=== PATIENT | female | born 1930 | race Caucasian/White ===

== ENCOUNTER 2017-08-16 13:49 | Emergency (ER) | payer MEDICARE ==
[~2017-08-16] VITALS: Ht 160 cm; Wt 66.2 kg
[~2017-08-16 13:49] MED LIST: AMLO5TAB2 PO; ASCO-78 PO; ATOR10TA PO; CALC667C6 PO; CLOP75TA57 PO; ZOLP5TAB PO
--- NOTE | 2017-08-16 14:37 | EKG ---
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
[2017-08-16 14:40] LABS: BASO # 0.1 x10^3/uL (0.0-0.2); BASO % 1 % (0-3); EOS % 0 % (0-3); HEMATOCRIT 36.5 % (36.0-47.0); HEMOGLOBIN 12.9 g/dL (12.0-15.5); LYMPH # 1.3 x10^3/uL (1.0-4.8); LYMPH % 11 % (24-48); MEAN CORPUSCULAR HEMOGLOBIN 32 pg (25-35); MEAN CORPUSCULAR HGB CONC 35 g/dL (31-37); MEAN CORPUSCULAR VOLUME 90 fL (79-100); MONO # 1.7 x10^3/uL (0.0-1.1); MONO % 14 % (0-9); NEUT # 8.9 x10^3uL (1.8-7.7); NEUT % 75 % (31-73); PLATELET COUNT 165 x10^3/uL (140-400); RED BLOOD COUNT 4.06 x10^6/uL (3.50-5.40); RED CELL DISTRIBUTION WIDTH 13.2 % (11.5-14.5)
[2017-08-16 14:55] LABS: ALBUMIN 3.7 g/dL (3.4-5.0); CALCIUM 9.2 mg/dL (8.5-10.1); CREATININE 1.2 mg/dL (0.6-1.0); DIRECT BILIRUBIN 0.4 mg/dL (0.0-0.2); GFR 42.5; POTASSIUM 3.9 mmol/L (3.5-5.1); TOTAL BILIRUBIN 1.2 mg/dL (0.2-1.0); TOTAL PROTEIN 7.4 g/dL (6.4-8.2)
[2017-08-16] MEDS ORDERED: ONDA4TAB7 PO (15:10)
--- NOTE | 2017-08-16 15:10 | PHYS DOC ---
Past History Past Medical History: Diabetes, High Cholesterol, Other Past Surgical History: Colectomy, Hysterectomy, Oophorectomy, Pacemaker Alcohol Use: None Drug Use: None Adult General Chief Complaint Chief Complaint: nausea HPI HPI 86-year-old female presenting to the emergency department today with nausea. She reports her nausea started about 2 days ago. She denies any vomiting or pain. She denies chest pain or abdominal pain. She complains of chills but denies having fevers at home. She denies numbness weakness or tingling vision changes difficulty talking or walking. Review of systems is negative for fevers chills neck stiffness confusion cyanosis lethargy chest pain shortness of breath abdominal pain vomiting diarrhea constipation. All other review of systems is negative unless otherwise noted in history of present illness. ED course: 86-year-old female presenting to the emergency department today with nausea. Triage vital signs afebrile with a normal heart rate and blood pressure. Saturating well on room air. Patient is comfortable with on examination. Nontender abdomen clear lungs to auscultation. Otherwise normal neurologic exam. There are no rashes present on the patient's skin. Based on the patient's symptoms we mónica some blood work and reviewed it which showed evidence of a urinary tract infection. Mild leukocytosis present. This explains most of the patient's symptoms and is consistent with patient's clinical presentation. The patient was initiated on antibiotic therapy. The patient was then discharged home in stable condition to follow up with their primary care physician over the next 2-3 days. They were to return if their symptoms worsened or if they were concerned for any reason. [id number] discharge instructions and return precautions were given. Patient's questions were answered to their satisfaction. Patient is comfortable plan. Review of Systems Review of Systems SEE ABOVE. Allergies Allergies Allergies Coded Allergies Type Severity Reaction Last Updated Verified aspirin Allergy Intermediate 10/22/14 Yes I S O L A T I O N *CONTACT* Allergy Unknown 05/25/15 No Physical Exam Physical Exam SEE ABOVE Constitutional: Well developed, well nourished, no acute distress, non-toxic appearance. [] HENT: Normocephalic, atraumatic, bilateral external ears normal, oropharynx moist, no oral exudates, nose normal. [] Eyes: PERRLA, EOMI, conjunctiva normal, no discharge. [] Neck: Normal range of motion, no tenderness, supple, no stridor. [] Cardiovascular:Heart rate regular rhythm, no murmur [] Lungs & Thorax: Bilateral breath sounds clear to auscultation [] Abdomen: Bowel sounds normal, soft, no tenderness, no masses, no pulsatile masses. [] Skin: Warm, dry, no erythema, no rash. [] Back: No tenderness, no CVA tenderness. [] Extremities: No tenderness, no cyanosis, no clubbing, ROM intact, no edema. [] Neurologic: Alert and oriented X 3, normal motor function, normal sensory function, no focal deficits noted. [] Psychologic: Affect normal, judgement normal, mood normal. [] Current Patient Data Vital Signs Vital Signs Date Time Temp Pulse Resp B/P (MAP) Pulse Ox O2 Delivery O2 Flow Rate FiO2 08/16/17 13:49 98.2 76 18 97 Room Air Lab Results Laboratory Tests Test 08/16/17 14:27 White Blood Count 12.0 x10^3/uL (4.0-11.0) H Red Blood Count 4.06 x10^6/uL (3.50-5.40) Hemoglobin 12.9 g/dL (12.0-15.5) Hematocrit 36.5 % (36.0-47.0) Mean Corpuscular Volume 90 fL (79-100) Mean Corpuscular Hemoglobin 32 pg (25-35) Mean Corpuscular Hemoglobin Concent 35 g/dL (31-37) Red Cell Distribution Width 13.2 % (11.5-14.5) Platelet Count 165 x10^3/uL (140-400) Neutrophils (%) (Auto) 75 % (31-73) H Lymphocytes (%) (Auto) 11 % (24-48) L Monocytes (%) (Auto) 14 % (0-9) H Eosinophils (%) (Auto) 0 % (0-3) Basophils (%) (Auto) 1 % (0-3) Neutrophils # (Auto) 8.9 x10^3uL (1.8-7.7) H Lymphocytes # (Auto) 1.3 x10^3/uL (1.0-4.8) Monocytes # (Auto) 1.7 x10^3/uL (0.0-1.1) H Eosinophils # (Auto) 0.0 x10^3/uL (0.0-0.7) Basophils # (Auto) 0.1 x10^3/uL (0.0-0.2) Sodium Level 137 mmol/L (136-145) Potassium Level 3.9 mmol/L (3.5-5.1) Chloride Level 103 mmol/L (98-107) Carbon Dioxide Level 26 mmol/L (21-32) Anion Gap 8 (6-14) Blood Urea Nitrogen 15 mg/dL (7-20) Creatinine 1.2 mg/dL (0.6-1.0) H Estimated GFR (Cockcroft-Gault) 42.5 Glucose Level 143 mg/dL (70-99) H Calcium Level 9.2 mg/dL (8.5-10.1) Total Bilirubin 1.2 mg/dL (0.2-1.0) H Direct Bilirubin 0.4 mg/dL (0.0-0.2) H Aspartate Amino Transferase (AST) 19 U/L (15-37) Alanine Aminotransferase (ALT) 22 U/L (14-59) Alkaline Phosphatase 80 U/L (46-116) Troponin I Quantitative < 0.017 ng/mL (0-0.055) Total Protein 7.4 g/dL (6.4-8.2) Albumin 3.7 g/dL (3.4-5.0) Lipase 102 U/L (73-393) EKG EKG EKG reviewed by myself shows sinus rhythm with a regular rate. ST segments congruent. Not suggestive of ACS. Mildly leftward axis present.[] Radiology/Procedures Radiology/Procedures [] Course & Med Decision Making Course & Med Decision Making Pertinent Labs and Imaging studies reviewed. (See chart for details) [] Dragon Disclaimer Dragon Disclaimer This chart was dictated in whole or in part using Voice Recognition software in a busy, high-work load, and often noisy Emergency Department environment. It may contain unintended and wholly unrecognized errors or omissions. Departure Departure: Impression: Primary Impression: Nausea Additional Impressions: Urinary tract infection Chills Disposition: HOME, SELF-CARE Condition: STABLE Referrals: MARCIAL GONZALEZ MD (PCP) Patient Instructions: Nausea, Adult Additional Instructions: Thank you for allowing us to participate in your care today. Followup with your primary care physician in 3 days if your symptoms do not improve. Call your Primary Doctor tomorrow and inform them of your visit today. If you do not have a primary care provider you can ask for a list of our primary care providers. Return to the emergency department you have any new or concerning findings. This should be evaluated by the primary care physician and any necessary consulting services for continued management within a few days after discharge. Return to emergency room if you have any new or concerning symptoms including but not limited to fever, chills, nausea, vomiting, intractable pain, any new rashes, chest pain, shortness of air, uncontrolled bleeding, difficulty breathing, and/or vision loss. Scripts Nitrofurantoin Monohyd/M-Cryst (MACROBID 100 MG CAPSULE) 100 Mg Capsule 1 CAP PO BID, #10 CAP Prov: SHOLA RODRÍGUEZ MD 08/16/17 Ondansetron Hcl (ZOFRAN) 4 Mg Tablet 1 TAB PO PRN Q6HRS Y for NAUSEA, #6 TAB Prov: SHOLA RODRÍGUEZ MD 08/16/17 Problem Qualifiers SHOLA RODRÍGUEZ MD Aug 16, 2017 15:10
[2017-08-16 15:34] LABS: BILIRUBIN,URINE NEG (NEG); CLARITY,URINE TURBID; COLOR,URINE YELLOW; GLUCOSE,URINE NEG (NEG); NITRITE,URINE POS (NEG); UROBILINOGEN,URINE 0.2 mg/dL (0.2 mg/dL); WBC,URINE TNTC /HPF (0-4)
[2017-08-16 15:35] LABS: BACTERIA,URINE MOD /HPF (0-FEW); SQUAMOUS EPITHELIAL CELL,UR FEW /LPF
--- NOTE | 2017-08-16 16:18 | RAD ---
CHEST PA LATERAL Clinical Indication: chills with elevated wbc, concern for pneumonia Comparison: Chest radiograph dated 05/23/2015 Findings: Interval placement of left pacemaker with leads in the right atrium and right ventricle. Normal lung volume. No focal consolidation. Normal pulmonary vasculature. No pleural effusion or pneumothorax. The cardiomediastinal silhouette is normal. Stable tortuous thoracic aorta. Calcified mediastinal lymph nodes. No acute osseous abnormality. Moderate multilevel degenerative changes of the visualized spine. IMPRESSION: 1. No acute cardiopulmonary process. 2. New left pacemaker as above.
[2017-08-16] MEDS ORDERED: NITR100C62 PO (16:26)
[2017-08-16 16:43] VITALS: BP 128/67
== END 2017-08-16 17:00 | disposition home or self-care (01) ==
LOC: ER 13:49
DX: N39.0 Urinary tract infection, site not specified (principal); R11.0 Nausea; E11.9 Type 2 diabetes mellitus without complications; E78.00 Pure hypercholesterolemia, unspecified; Z95.0 Presence of cardiac pacemaker; Z88.6 Allergy status to analgesic agent; Z91.041 Radiographic dye allergy status
CPT/HCPCS: 36415; 71020; 80048; 80076; 81001; 82947; 83690; 84484; 85025; 87086; 93005; 99285-25

== ENCOUNTER 2018-09-29 12:23 | Emergency (ER) | payer MEDICARE ==
[~2018-09-29] VITALS: Ht 160 cm; Wt 64.2 kg
[~2018-09-29 12:23] MED LIST changes: -AMLO5TAB2 PO; +AMLO5TAB7 PO; +NITR100C62 PO; +ONDA4TAB7 PO
[2018-09-29] MEDS ORDERED: IV NORMAL SALINE 500ML 500 ML IV SCH (13:00)
[2018-09-29 13:07] LABS: BASO % 0 % (0-3); EOS % 0 % (0-3); HEMOGLOBIN 13.6 g/dL (12.0-15.5); LYMPH # 0.9 x10^3/uL (1.0-4.8); LYMPH % 14 % (24-48); MEAN CORPUSCULAR HEMOGLOBIN 31 pg (25-35); MEAN CORPUSCULAR HGB CONC 34 g/dL (31-37); MEAN CORPUSCULAR VOLUME 91 fL (79-100); MONO # 0.9 x10^3/uL (0.0-1.1); MONO % 14 % (0-9); NEUT # 4.8 x10^3uL (1.8-7.7); NEUT % 72 % (31-73); PLATELET COUNT 147 x10^3/uL (140-400); RED BLOOD COUNT 4.42 x10^6/uL (3.50-5.40); WHITE BLOOD COUNT 6.7 x10^3/uL (4.0-11.0)
[2018-09-29 13:17] LABS: ALBUMIN 3.9 g/dL (3.4-5.0); ALBUMIN/GLOBULIN RATIO 1.3 (1.0-1.7); CALCIUM 9.2 mg/dL (8.5-10.1); CREATININE 1.2 mg/dL (0.6-1.0); GFR 42.4; POTASSIUM 4.2 mmol/L (3.5-5.1)
[2018-09-29 14:25] VITALS: BP 126/61
--- NOTE | 2018-09-29 14:26 | PHYS DOC ---
Past History Past Medical History: Diabetes, High Cholesterol, Other Past Surgical History: Colectomy, Hysterectomy, Oophorectomy, Pacemaker Alcohol Use: None Drug Use: None Adult General Chief Complaint Chief Complaint: SYNCOPE HPI HPI Patient is an 87-year-old female who presents with report of having had syncopal episode. Patient had been shopping at [employer] when all of a sudden she became nauseated and broke out into a sweat. She states that she has had many syncopal episodes in her life and she knew that she was getting ready to pass out so she just sat down as quickly as she could. Patient is unsure how long she was out for. She denies any chest pain or shortness of breath. Patient states that she is still just a little bit nauseated. She denies palpitations. Review of Systems Review of Systems Constitutional: Denies fever or chills [] Respiratory: Denies cough or shortness of breath [] Cardiovascular: No additional information not addressed in HPI [] GI: Denies abdominal pain, vomiting or diarrhea. [] : Denies dysuria or hematuria [] Musculoskeletal: Denies back pain or joint pain [] Neurologic: Complains of syncopal episode.[] All other systems were reviewed and found to be within normal limits, except as documented in this note. Current Medications Current Medications Current Medications Medications (Trade) Dose Ordered Sig/Charele Start Time Stop Time Status Last Admin Dose Admin Sodium Chloride 500 ml @ 500 mls/hr Q1H 09/29/18 13:00 09/29/18 13:24 DC 09/29/18 13:24 500 MLS/HR Allergies Allergies Allergies Coded Allergies Type Severity Reaction Last Updated Verified aspirin Allergy Intermediate 10/22/14 Yes I S O L A T I O N *CONTACT* Allergy Unknown 05/25/15 No Physical Exam Physical Exam Constitutional: Well developed, well nourished, no acute distress, non-toxic appearance. [] HENT: Normocephalic, atraumatic, bilateral external ears normal, oropharynx moist, no oral exudates, nose normal. [] Eyes: PERRLA, EOMI, conjunctiva normal, no discharge. [] Neck: Normal range of motion, no tenderness, supple, no stridor. [] Cardiovascular:Heart rate regular rhythm [] Lungs & Thorax: Bilateral breath sounds clear to auscultation [] Abdomen: Bowel sounds normal, soft, no tenderness. [] Skin: Warm, dry, no erythema, no rash. [] Extremities: No tenderness, no cyanosis, no clubbing, ROM intact, no edema. [] Neurologic: Alert and oriented X 3, normal motor function, normal sensory function, no focal deficits noted. [] Current Patient Data Vital Signs Vital Signs Date Time Temp Pulse Resp B/P (MAP) Pulse Ox O2 Delivery O2 Flow Rate FiO2 09/29/18 12:23 98.2 71 18 97 Room Air Lab Results Laboratory Tests Test 09/29/18 12:27 White Blood Count 6.7 x10^3/uL (4.0-11.0) Red Blood Count 4.42 x10^6/uL (3.50-5.40) Hemoglobin 13.6 g/dL (12.0-15.5) Hematocrit 40.0 % (36.0-47.0) Mean Corpuscular Volume 91 fL (79-100) Mean Corpuscular Hemoglobin 31 pg (25-35) Mean Corpuscular Hemoglobin Concent 34 g/dL (31-37) Red Cell Distribution Width 13.0 % (11.5-14.5) Platelet Count 147 x10^3/uL (140-400) Neutrophils (%) (Auto) 72 % (31-73) Lymphocytes (%) (Auto) 14 % (24-48) L Monocytes (%) (Auto) 14 % (0-9) H Eosinophils (%) (Auto) 0 % (0-3) Basophils (%) (Auto) 0 % (0-3) Neutrophils # (Auto) 4.8 x10^3uL (1.8-7.7) Lymphocytes # (Auto) 0.9 x10^3/uL (1.0-4.8) L Monocytes # (Auto) 0.9 x10^3/uL (0.0-1.1) Eosinophils # (Auto) 0.0 x10^3/uL (0.0-0.7) Basophils # (Auto) 0.0 x10^3/uL (0.0-0.2) Sodium Level 133 mmol/L (136-145) L Potassium Level 4.2 mmol/L (3.5-5.1) Chloride Level 95 mmol/L (98-107) L Carbon Dioxide Level 22 mmol/L (21-32) Anion Gap 16 (6-14) H Blood Urea Nitrogen 13 mg/dL (7-20) Creatinine 1.2 mg/dL (0.6-1.0) H Estimated GFR (Cockcroft-Gault) 42.4 BUN/Creatinine Ratio 11 (6-20) Glucose Level 391 mg/dL (70-99) H Calcium Level 9.2 mg/dL (8.5-10.1) Total Bilirubin 1.0 mg/dL (0.2-1.0) Aspartate Amino Transferase (AST) 19 U/L (15-37) Alanine Aminotransferase (ALT) 22 U/L (14-59) Alkaline Phosphatase 70 U/L (46-116) Total Protein 7.0 g/dL (6.4-8.2) Albumin 3.9 g/dL (3.4-5.0) Albumin/Globulin Ratio 1.3 (1.0-1.7) EKG EKG EKG demonstrates sinus rhythm with rate of 75. Radiology/Procedures Radiology/Procedures [] Course & Med Decision Making Course & Med Decision Making Pertinent Labs and Imaging studies reviewed. (See chart for details) [] Dragon Disclaimer Dragon Disclaimer This electronic medical record was generated, in whole or in part, using a voice recognition dictation system. Departure Departure: Impression: Primary Impression: Vasovagal syncope Additional Impression: Hyperglycemia due to type 2 diabetes mellitus Disposition: 01 HOME, SELF-CARE Condition: STABLE Referrals: MARCIAL GONZALEZ MD (PCP) Patient Instructions: Hyperglycemia, Syncope, Type 2 Diabetes Mellitus, Adult Problem Qualifiers Additional Impression: Hyperglycemia due to type 2 diabetes mellitus Diabetes mellitus lang interpreter insulin use: without lang interpreter use Qualified Codes: E11.65 - Type 2 diabetes mellitus with hyperglycemia MINNIE DUGAN Jr. DO Sep 29, 2018 14:26
--- NOTE | 2018-10-02 00:38 | EKG ---
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
[2018-10-03] MEDS ORDERED: GLIM1TAB PO (11:27)
[2018-10-03] MEDS ORDERED: METF500T9 PO (11:28)
== END 2018-09-29 14:30 | disposition home or self-care (01) ==
LOC: ER 12:23
DX: R55 Syncope and collapse (principal); E11.65 Type 2 diabetes mellitus with hyperglycemia; E78.00 Pure hypercholesterolemia, unspecified; Z95.0 Presence of cardiac pacemaker; Z88.6 Allergy status to analgesic agent; Z91.041 Radiographic dye allergy status
CPT/HCPCS: 99285; J7040; 36415; 80053; 82947; 85025; 93005; 96360

== ENCOUNTER 2018-10-01 13:18 | Inpatient (IN) | payer MEDICARE ==
[~2018-10-01] VITALS: Ht 160 cm; Wt 61.0 kg
[2018-10-01] MEDS ORDERED: IV NORMAL SALINE 1,000ML 1,000 ML IV ONE (14:30)
[2018-10-01 14:38] LABS: BASO % 0 % (0-3); EOS % 0 % (0-3); HEMATOCRIT 36.5 % (36.0-47.0); HEMOGLOBIN 12.5 g/dL (12.0-15.5); LYMPH # 0.8 x10^3/uL (1.0-4.8); LYMPH % 11 % (24-48); MEAN CORPUSCULAR HEMOGLOBIN 31 pg (25-35); MEAN CORPUSCULAR HGB CONC 34 g/dL (31-37); MEAN CORPUSCULAR VOLUME 89 fL (79-100); MONO % 14 % (0-9); NEUT # 5.3 x10^3uL (1.8-7.7); NEUT % 75 % (31-73); PLATELET COUNT 150 x10^3/uL (140-400); RED BLOOD COUNT 4.09 x10^6/uL (3.50-5.40); WHITE BLOOD COUNT 7.1 x10^3/uL (4.0-11.0)
[2018-10-01 14:46] LABS: ALBUMIN 3.4 g/dL (3.4-5.0); ALBUMIN/GLOBULIN RATIO 0.9 (1.0-1.7); CALCIUM 8.8 mg/dL (8.5-10.1); CREATININE 1.2 mg/dL (0.6-1.0); GFR 42.4; POTASSIUM 3.5 mmol/L (3.5-5.1); TOTAL BILIRUBIN 1.2 mg/dL (0.2-1.0); TOTAL PROTEIN 7.2 g/dL (6.4-8.2)
[2018-10-01] MEDS ORDERED: INSULIN REGULAR 100 UNIT/ML 3ML VIAL. IV ONE (15:00)
--- NOTE | 2018-10-01 15:09 | PHYS DOC ---
Past History Past Medical History: Diabetes, High Cholesterol, Other Past Surgical History: Colectomy, Hysterectomy, Oophorectomy, Pacemaker Alcohol Use: None Drug Use: None Adult General Chief Complaint Chief Complaint: BLOOD SUGAR PROBLEM HPI HPI 87-year-old female presents with hyperglycemia. She states that her blood sugar was over 500 today. Patient is feeling okay except for she has had 2 days increased urination and feels more fatigued than normal. She has never been placed on diabetes medications long-term. She was trialed on the medicine at one point. Her physician was very concerned about her becoming hypoglycemic. She denies fever or chills. Review of Systems Review of Systems Constitutional: Fatigue. Denies fever or chills [] Eyes: Denies change in visual acuity, redness, or eye pain [] HENT: Denies nasal congestion or sore throat [] Respiratory: Denies cough or shortness of breath [] Cardiovascular: No additional information not addressed in HPI [] GI: Denies abdominal pain, nausea, vomiting, bloody stools or diarrhea [] : Frequent urination[] Musculoskeletal: Denies back pain or joint pain [] Integument: Denies rash or skin lesions [] Neurologic: Denies headache, focal weakness or sensory changes [] Endocrine: Denies polyuria or polydipsia [] All other systems were reviewed and found to be within normal limits, except as documented in this note. Current Medications Current Medications Current Medications Medications (Trade) Dose Ordered Sig/Charlee Start Time Stop Time Status Last Admin Dose Admin Insulin Human Regular (HumuLIN R VIAL) 10 unit 1X ONCE 10/01/18 15:00 10/01/18 15:01 10/01/18 14:51 10 UNIT Sodium Chloride 1,000 ml @ 1,000 mls/hr 1X ONCE 10/01/18 14:30 10/01/18 15:29 10/01/18 14:30 1,000 MLS/HR Allergies Allergies Allergies Coded Allergies Type Severity Reaction Last Updated Verified aspirin Allergy Intermediate 10/22/14 Yes I S O L A T I O N *CONTACT* Allergy Unknown 05/25/15 No Physical Exam Physical Exam Constitutional: Well developed, well nourished, no acute distress, non-toxic appearance. [] HENT: Normocephalic, atraumatic, bilateral external ears normal, oropharynx moist, no oral exudates, nose normal. [] Eyes: PERRLA, EOMI, conjunctiva normal, no discharge. [] Neck: Normal range of motion, no tenderness, supple, no stridor. [] Cardiovascular:Heart rate regular rhythm, no murmur [] Lungs & Thorax: Bilateral breath sounds clear to auscultation [] Abdomen: Bowel sounds normal, soft, no tenderness, no masses, no pulsatile masses. [] Skin: Warm, dry, no erythema, no rash. [] Back: No tenderness, no CVA tenderness. [] Extremities: No tenderness, no cyanosis, no clubbing, ROM intact, no edema. [] Neurologic: Alert and oriented X 3, normal motor function, normal sensory function, no focal deficits noted. [] Psychologic: Affect normal, judgement normal, mood normal. [] Current Patient Data Lab Results Laboratory Tests Test 10/01/18 13:39 10/01/18 13:50 Glucose (Fingerstick) 534 mg/dL (70-99) *H White Blood Count 7.1 x10^3/uL (4.0-11.0) Red Blood Count 4.09 x10^6/uL (3.50-5.40) Hemoglobin 12.5 g/dL (12.0-15.5) Hematocrit 36.5 % (36.0-47.0) Mean Corpuscular Volume 89 fL (79-100) Mean Corpuscular Hemoglobin 31 pg (25-35) Mean Corpuscular Hemoglobin Concent 34 g/dL (31-37) Red Cell Distribution Width 13.0 % (11.5-14.5) Platelet Count 150 x10^3/uL (140-400) Neutrophils (%) (Auto) 75 % (31-73) H Lymphocytes (%) (Auto) 11 % (24-48) L Monocytes (%) (Auto) 14 % (0-9) H Eosinophils (%) (Auto) 0 % (0-3) Basophils (%) (Auto) 0 % (0-3) Neutrophils # (Auto) 5.3 x10^3uL (1.8-7.7) Lymphocytes # (Auto) 0.8 x10^3/uL (1.0-4.8) L Monocytes # (Auto) 1.0 x10^3/uL (0.0-1.1) Eosinophils # (Auto) 0.0 x10^3/uL (0.0-0.7) Basophils # (Auto) 0.0 x10^3/uL (0.0-0.2) Sodium Level 129 mmol/L (136-145) L Potassium Level 3.5 mmol/L (3.5-5.1) Chloride Level 94 mmol/L (98-107) L Carbon Dioxide Level 25 mmol/L (21-32) Anion Gap 10 (6-14) Blood Urea Nitrogen 14 mg/dL (7-20) Creatinine 1.2 mg/dL (0.6-1.0) H Estimated GFR (Cockcroft-Gault) 42.4 BUN/Creatinine Ratio 12 (6-20) Glucose Level 500 mg/dL (70-99) *H Calcium Level 8.8 mg/dL (8.5-10.1) Total Bilirubin 1.2 mg/dL (0.2-1.0) H Aspartate Amino Transferase (AST) 18 U/L (15-37) Alanine Aminotransferase (ALT) 22 U/L (14-59) Alkaline Phosphatase 71 U/L (46-116) Total Protein 7.2 g/dL (6.4-8.2) Albumin 3.4 g/dL (3.4-5.0) Albumin/Globulin Ratio 0.9 (1.0-1.7) L Acetone Level Neg (NEG) EKG EKG Sinus rhythm, rate 77, normal axis, no ST elevations or depressions, PVCs.[] Radiology/Procedures Radiology/Procedures [] Course & Med Decision Making Course & Med Decision Making Pertinent Labs and Imaging studies reviewed. (See chart for details) The patient's fingerstick blood sugar was over 500. Her lab blood sugar was also 500. I will give her 10 units of regular insulin IV as well as a liter of normal saline. Given the patient's age and lack of glycemic control, I feel it is prudent to admit her to the hospital for medication regulation. Her acetone was negative. The patient and her family are in agreement with admission. The patient's urine was significant for yeast and white cells. He was nitrate and leukocyte esterase negative. I will treat her with 150 mg of Diflucan. I discussed the patient with Dr. Ruiz and he has agreed to admit the patient for further diabetes management. Her repeat blood sugar was 302. [] Dragon Disclaimer Dragon Disclaimer This electronic medical record was generated, in whole or in part, using a voice recognition dictation system. Departure Departure: Referrals: MARCIAL GONZALEZ MD (PCP) JOSÉ MIGUEL RIVERA DO Oct 01, 2018 15:09
[2018-10-01 15:30] LABS: BILIRUBIN,URINE NEG (NEG); CLARITY,URINE CLOUDY; COLOR,URINE YELLOW; GLUCOSE,URINE >=1000 mg/dL (NEG); NITRITE,URINE NEG (NEG); UROBILINOGEN,URINE 0.2 mg/dL (0.2 mg/dL)
[2018-10-01 15:31] LABS: BACTERIA,URINE MANY /HPF (0-FEW); SQUAMOUS EPITHELIAL CELL,UR MOD /LPF; WBC,URINE 20-40 /HPF (0-4); YEAST,URINE PRESENT /HPF
[2018-10-01] MEDS ORDERED: FLUCONAZOLE 100 MG TABLET. PO ONE (15:45)
[2018-10-01] MEDS ORDERED: ONDANSETRON PF 4 MG/2 ML VIAL. IV PRN (16:00)
[2018-10-01 17:19] VITALS: BP 111/66
[2018-10-01] MEDS ORDERED: APIX5TAB3 PO (17:34)
[2018-10-01] MEDS ORDERED: CRAN1CAP12 PO (17:34)
[2018-10-01] MEDS ORDERED: METO25TA2 PO (17:34)
[2018-10-01] MEDS ORDERED: CHOL10003 PO (17:34)
[2018-10-01] MEDS ORDERED: GLIMEPIRIDE 2 MG TABLET PO ONE (17:45)
[2018-10-01] MEDS ORDERED: DEXTROSE 50% 25 GM / 50ML DISP.SYRIN. IV PRN (17:45)
[2018-10-01] MEDS: INSULIN LISPRO 300 UNITS/3 ML INSULN.PEN. SQ SCH (18:15)
[2018-10-01 19:54] VITALS: BP 98/61
[2018-10-01] MEDS: APIXABAN 5 MG TABLET. PO SCH (20:30)
[2018-10-01 23:10] VITALS: BP 110/68
[2018-10-02 05:38] VITALS: BP 102/64
[2018-10-02 06:09] LABS: CALCIUM 8.4 mg/dL (8.5-10.1); CREATININE 0.8 mg/dL (0.6-1.0); GFR 67.7; POTASSIUM 3.1 mmol/L (3.5-5.1)
[2018-10-02] MEDS: INSULIN LISPRO 300 UNITS/3 ML INSULN.PEN. SQ SCH ×3 (08:00→17:14)
[2018-10-02] MEDS ORDERED: metFORMIN XR 500 MG TAB.ER.24H PO SCH (08:00)
[2018-10-02] MEDS: CLOPIDOGREL BISULFATE 75 MG TABLET PO SCH (08:22)
[2018-10-02] MEDS: APIXABAN 5 MG TABLET. PO SCH ×2 (08:22→20:58)
[2018-10-02] MEDS: CHOLECALCIFEROL (VITAMIN D3) 1,000 UNIT TABLET PO SCH (08:24)
[2018-10-02] MEDS: METOPROLOL SUCC 24HR ER 25 MG TAB.ER.24H. PO SCH (08:24)
[2018-10-02] MEDS ORDERED: GLIMEPIRIDE 2 MG TABLET PO SCH (09:00)
[2018-10-02 11:09] VITALS: BP 104/62
[2018-10-02] MEDS ORDERED: ENOXAPARIN 40 MG/0.4 ML SYRINGE. SQ SCH (14:45)
[2018-10-02] MEDS: IV NORMAL SALINE 1,000ML 1,000 ML IV SCH (14:45)
[2018-10-02 14:54] VITALS: BP 106/63
[2018-10-02] MEDS ORDERED: POTASSIUM CHLORIDE 20 MEQ TABLET.ER. PO ONE (15:00)
--- NOTE | 2018-10-02 15:06 | HP ---
ADMIT DATE: 10/01/2018 HISTORY OF PRESENT ILLNESS: The patient is an 87-year-old female patient who came to the Emergency Room as her blood sugar was found to be extremely high. She apparently had had a syncopal episode last Monday at [facility] and was brought to the Emergency Room. At that time, her blood sugar was found to be 300 mg. She was treated and was sent home only to have another syncopal episode. Her daughter said that they went both together to [facility] and she noted that she was not energetic and very tired and found at both a glucometer and found her blood sugar to be extremely high and therefore, she was sent to the Emergency Room for further evaluation and treatment. On questioning her further, she said that she has had polydipsia, polyuria and she has also increased appetite, although she has not regained any weight. She also did complain of pain in both shoulder joint and had had multiple syncopal episodes. She is known to have sick sinus syndrome for which she has a permanent pacemaker. Her pacemaker was interrogated about a year ago and was functioning well. She is Due to be interrogated at the beginning of next month. PAST MEDICAL HISTORY: Significant for hypertension, atrial fibrillation, sick sinus syndrome, generalized osteoarthritis, sensorineural deafness and type 2 diabetes. Apparently, 6 months ago, they tried Glucophage and apparently caused a lot of GI side effects and the ID Glucophage was discontinued, but no further action was done to improve her glycemic control. ALLERGIES: SHE IS ALLERGIC TO ASPIRIN. MEDICATIONS: She is currently on the following medication at home, she is on apixaban 5 mg twice a day, Plavix 75 mg once a day, metoprolol succinate 25 mg once a day, ergocalciferol, vitamin D3 10,000 international unit once a day, cranberry extract, vitamin C 1 tablet once a day. REVIEW OF SYSTEMS: The patient denied any blurring of vision. She has bilateral cataract extraction, but denied any glaucoma or macular degeneration. Denied any earache, tinnitus or sensorineural deafness. Denied any nosebleeds, stuffy nose or postnasal drip. Denied any sore throat, sore tongue, toothache, hoarseness of voice or difficulty swallowing. Denied any nausea, vomiting, diarrhea or constipation. Did complain of polyuria and polydipsia. Denied any chest pain, shortness of breath, orthopnea or paroxysmal nocturnal dyspnea. Did complain of current onset of syncope. She has bilateral hearing aids. FAMILY HISTORY: Strongly positive for lung cancer in her brother and sisters. Her father at the age of 60 because of emphysema. Her mother in her 80s secondary to Alzheimer's disease. SOCIAL HISTORY: She is and lives alone. She is fairly independent. She has 4 daughters, one of them because of neurodegenerative disease. She never smoked. She does not drink alcohol. 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 PHYSICAL EXAMINATION: GENERAL: On arrival to the Emergency Room, she looked well and was clearly in no apparent respiratory distress, slightly pale, but no jaundice, cyanosis, or thyromegaly. No jugular venous distension. No limb edema. VITAL SIGNS: Her heart rate was 78, blood pressure 122/67, temperature was 97.9, respiratory rate was 18 and oxygen saturation was 98%. HEAD, EYES, EARS, NOSE AND THROAT: Showed normocephalic, atraumatic. NECK: Supple. HEART: Showed normal first and second heart sounds with no gallop, rub or murmur. CHEST: Clear to auscultation. No crepitation or rhonchi. ABDOMEN: Distended, soft, nontender. NEUROLOGIC: She was awake, alert, hard of hearing, otherwise all cranial nerves intact. EXTREMITIES: She moves extremities without difficulty. She ambulates without difficulty. LABORATORY DATA: On admission showed her white cell count to be 7100, hemoglobin 12.5, hematocrit 36.5, MCV 89 and platelet count of 150,000 with normal manual differential. Her chemistry on admission showed her serum sodium was 129, potassium 3.5, chloride 94, bicarbonate 25, anion gap of 10, BUN 14, creatinine 1.2, estimated GFR was 42 mL per minute. Her glucose was 534, calcium was 8.8. Total bilirubin 1.2, AST, ALT, alkaline phosphatase normal. Total protein was 7.2, albumin was 3.4. Her urinalysis showed the urine was yellow, cloudy with a pH of 5.5, specific gravity 1.005. The urine was negative for protein. There was large amount of glucose, trace of ketone, small amount of blood, negative for nitrite and bilirubin. There is the urine was negative for leukocyte esterase, 1-2 rbc's, 20-40 wbc's, moderate amount of many bacteria and urine yeast was present Acetone was negative. She was admitted basically with poorly controlled type 2 diabetes mellitus for which we will start her on oral hypoglycemic agent. I will start with Diflucan. I will start with oral hypoglycemic agent in the form of Amaryl 2 mg and Glucophage extended release 500 mg will decrease the dose slowly. I will treat also possible urinary tract infection with IV antibiotic as well as yeast infection. I would check also her sed rate and C-reactive protein. She has pain in both shoulders concerning for polymyalgia rheumatica. LASHAY KOROMA MD DR: SKINNY/yaima JOB#: [id number] / [id number]
--- NOTE | 2018-10-02 16:35 | PDOC2 ---
CONSULT Date of Admission DATE: 10/02/18 TIME: 16:18 Reason for Consult: syncope Problem List Problems Medical Problems: (1) Hyperglycemia Status: Acute (2) Yeast UTI Status: Acute History of Present Illness Ms Fernandez is an 87 year old female who presents with complaints of recurrent syncope. She has a history of sick sinus syndrome, s/p ppm, paroxysmal atrial fibrillation, hypertension and hyperlipidemia as well as diabetes. She was apparently shopping at [employer] on Monday without any symptoms. She reports that as she was standing at the check out counter she was looking at her check book, asked the date and the next thing she remembers several people were supporting her. They assisted her to a sitting area and she says she just felt very tired. After about 30 minutes she apparently felt fine. She was seen in the ER and found to have an elevated blood sugar in the 300s. She was treated and released. She denies any preceding symptoms to include lightheadedness, palpitations, diaphoresis or flushing. She denies bite of tongue or loss of continence. She complains of trouble with her memory and says it seems random what she cant remember but only recent things. She apparently experienced another syncopal episode which is why her daughter brought her to the hospital today. She does not remember this. She denies chest pain, dyspnea, congestive symptoms. she reports that she has a great deal of trouble with arthritis and during cold weather is unable to do many things. She does complain of fatigue since cold weather started. She denies eating a diabetic diet or taking meds for diabetes. Past Medical History other history includes diabetes, hearing loss and arthritis Cardiovascular: HTN, hyperipidemia, Other (sick sinus syndrome s/p PPM. [employer] pacemaker with normal check in June of 2018. History of paroxysmal atrial fibrillation, device check in Jun with atrial burden of <1% and RV pacing of <1%. ) Past Surgical History: Appendectomy, Hernia Repair, Hysterectomy, Colectomy, Other (breast reduction and pacemaker placement) Family History non contributory due to age Social History non smoker, no significant ETOH, no illicit drugs Current Medications Current Medications Sodium Chloride 1,000 ml @ 1,000 mls/hr 1X ONCE IV Last administered on 10/01at 14:30; Start 10/01/18 at 14:30; Stop 10/01/18 at 15:29; Status DC Insulin Human Regular (HumuLIN R VIAL) 10 unit 1X ONCE IV Last administered on 10/01/18at 14:51; Start 10/01/18 at 15:00; Stop 10/01/18 at 15:01; Status DC Fluconazole (Diflucan) 150 mg 1X ONCE PO Last administered on 10/01/18at 15:57 ; Start 10/01/18 at 15:45; Stop 10/01/18 at 15:46; Status DC Ondansetron HCl (Zofran) 4 mg PRN Q4HRS PRN IV NAUSEA/VOMITING; Start at 16:00; Stop 10/02/18 at 15:59; Status DC Vitamin D (Vitamin D3) 1,000 unit DAILY PO ; Start 10/02/18 at 09:00 Clopidogrel Bisulfate (Plavix) 75 mg DAILY PO Last administered on 10/02/18at 08:22; Start 10/02/18 at 09:00 Metoprolol Succinate (Toprol Xl) 25 mg DAILY PO Last administered on at 08:24; Start 10/02/18 at 09:00 Apixaban (Eliquis) 5 mg BID PO Last administered on 10/02/18at 08:22; Start at 21:00 Insulin Human Lispro (HumaLOG) 0-5 UNITS TIDWMEALS SQ Last administered on at 12:21; Start 10/01/18 at 17:00 Dextrose 12.5 gm PRN Q15MIN PRN IV SEE COMMENTS; Start 10/01/18 at 17:45 Glimepiride (Amaryl) 1 mg 1X ONCE PO Last administered on 10/01/18at 18:10; Start 10/01/18 at 17:45; Stop 10/01/18 at 17:46; Status DC Glimepiride (Amaryl) 2 mg DAILY PO Last administered on 10/02/18at 08:22; Start 10/02/18 at 09:00; Stop 10/02/18 at 14:36; Status DC Metformin HCl (Glucophage Xr) 500 mg DAILYWBKFT PO Last administered on at 08:22; Start 10/02/18 at 08:00; Stop 10/02/18 at 14:36; Status DC Glimepiride (Amaryl) 2 mg BID PO ; Start 10/02/18 at 21:00 Metformin HCl (Glucophage Xr) 500 mg BID PO ; Start 10/02/18 at 21:00 Potassium Chloride (Klor-Con) 40 meq 1X ONCE PO ; Start 10/02/18 at 15:00; Stop 10/02/18 at 15:01; Status DC Potassium Chloride (Klor-Con) 20 meq TID PO ; Start 10/02/18 at 15:00 Sodium Chloride 1,000 ml @ 75 mls/hr [id number] IV ; Start 10/02/18 at 14:45 Enoxaparin Sodium (Lovenox 40mg Syringe) 40 mg Q24H SQ ; Start 10/02/18 at 14: 45; Stop 10/02/18 at 14:51; Status DC Active Scripts Active Reported Azo Cranberry Softgel (Cranberry Extract/Vit C) 1 Each Capsule 1 Each PO DAILY Eliquis (Apixaban) 5 Mg Tablet 5 Mg PO BID Toprol Xl (Metoprolol Succinate) 25 Mg Tab.er.24h 1 Tab PO DAILY Vitamin D3 (Cholecalciferol (Vitamin D3)) 1,000 Unit Tablet 1 Tab PO DAILY Plavix (Clopidogrel Bisulfate) 75 Mg Tablet 1 Tab PO DAILY LAST DOSE GIVEN: DATE: TODAY TIME: AM NEXT DOSE DUE: DATE: TOMORROW TIME: AM Allergies: Coded Allergies: aspirin (Verified Allergy, Intermediate, 10/22/14) I S O L A T I O N *CONTACT* (Unverified Allergy, Unknown, 05/25/15) +nasal screen 05-23-15 Review of System as per HPI General: YES: Fatigue PSYCHOLOGICAL ROS: YES: Depression HEENT: YES: Hearing change Genitourinary: YES: Other (polyuria, polydipsia) Musculoskeletal: YES: Joint Pain, Joint Stiffness Neurological: YES: Memory Loss General: Alert, Oriented X3, Cooperative, No acute distress HEENT: Atraumatic, EOMI, Other (negative carotid bruits) Lungs: Clear to auscultation Heart: Normal S1, Normal S2, Other (soft systolic murmur, no gallops, clicks or rubs) Abdomen: Normal bowel sounds, Soft, No tenderness Extremities: No cyanosis, Normal pulses Neuro: Normal speech, Strength at 5/5 X4 ext Psych/Mental Status: Mental status NL, Mood NL, Other (some short term memory loss) VITALS Vital Signs Date Time Temp Pulse Resp B/P (MAP) Pulse Ox O2 Delivery O2 Flow Rate FiO2 10/02/18 14:54 98.1 94 20 106/63 (77) 94 Room Air Labs Laboratory Tests Test 10/01/18 13:39 10/01/18 13:50 10/01/18 15:00 10/01/18 15:49 Glucose (Fingerstick) 534 mg/dL (70-99) 302 mg/dL (70-99) White Blood Count 7.1 x10^3/uL (4.0-11.0) Red Blood Count 4.09 x10^6/uL (3.50-5.40) Hemoglobin 12.5 g/dL (12.0-15.5) Hematocrit 36.5 % (36.0-47.0) Mean Corpuscular Volume 89 fL (79-100) Mean Corpuscular Hemoglobin 31 pg (25-35) Mean Corpuscular Hemoglobin Concent 34 g/dL (31-37) Red Cell Distribution Width 13.0 % (11.5-14.5) Platelet Count 150 x10^3/uL (140-400) Neutrophils (%) (Auto) 75 % (31-73) Lymphocytes (%) (Auto) 11 % (24-48) Monocytes (%) (Auto) 14 % (0-9) Eosinophils (%) (Auto) 0 % (0-3) Basophils (%) (Auto) 0 % (0-3) Neutrophils # (Auto) 5.3 x10^3uL (1.8-7.7) Lymphocytes # (Auto) 0.8 x10^3/uL (1.0-4.8) Monocytes # (Auto) 1.0 x10^3/uL (0.0-1.1) Eosinophils # (Auto) 0.0 x10^3/uL (0.0-0.7) Basophils # (Auto) 0.0 x10^3/uL (0.0-0.2) Sodium Level 129 mmol/L (136-145) Potassium Level 3.5 mmol/L (3.5-5.1) Chloride Level 94 mmol/L (98-107) Carbon Dioxide Level 25 mmol/L (21-32) Anion Gap 10 (6-14) Blood Urea Nitrogen 14 mg/dL (7-20) Creatinine 1.2 mg/dL (0.6-1.0) Estimated GFR (Cockcroft-Gault) 42.4 BUN/Creatinine Ratio 12 (6-20) Glucose Level 500 mg/dL (70-99) Calcium Level 8.8 mg/dL (8.5-10.1) Total Bilirubin 1.2 mg/dL (0.2-1.0) Aspartate Amino Transf (AST/SGOT) 18 U/L (15-37) Alanine Aminotransferase (ALT/SGPT) 22 U/L (14-59) Alkaline Phosphatase 71 U/L (46-116) Total Protein 7.2 g/dL (6.4-8.2) Albumin 3.4 g/dL (3.4-5.0) Albumin/Globulin Ratio 0.9 (1.0-1.7) Acetone Level Neg (NEG) Urine Collection Type Unknown Urine Color Yellow Urine Clarity Cloudy Urine pH 5.5 Urine Specific [place] <=1.005 Urine Protein Neg (NEG-TRACE) Urine Glucose (UA) >=1000 mg/dL (NEG) Urine Ketones (Stick) 15 mg/dL (NEG) Urine Blood Small (NEG) Urine Nitrite Neg (NEG) Urine Bilirubin Neg (NEG) Urine Urobilinogen Dipstick 0.2 mg/dL (0.2 mg/dL) Urine Leukocyte Esterase Neg (NEG) Urine RBC 1-2 /HPF (0-2) Urine WBC 20-40 /HPF (0-4) Urine Squamous Epithelial Cells Mod /LPF Urine Bacteria Many /HPF (0-FEW) Urine Yeast Present /HPF Test 10/01/18 16:57 10/01/18 17:33 10/01/18 20:26 10/02/18 04:50 Glucose (Fingerstick) 226 mg/dL (70-99) 217 mg/dL (70-99) 368 mg/dL (70-99) Nasal Screen MRSA (PCR) Negative (Negative) Test 10/02/18 05:30 10/02/18 07:39 10/02/18 11:42 Sodium Level 134 mmol/L (136-145) Potassium Level 3.1 mmol/L (3.5-5.1) Chloride Level 99 mmol/L (98-107) Carbon Dioxide Level 22 mmol/L (21-32) Anion Gap 13 (6-14) Blood Urea Nitrogen 9 mg/dL (7-20) Creatinine 0.8 mg/dL (0.6-1.0) Estimated GFR (Cockcroft-Gault) 67.7 Glucose Level 210 mg/dL (70-99) Calcium Level 8.4 mg/dL (8.5-10.1) Glucose (Fingerstick) 225 mg/dL (70-99) 316 mg/dL (70-99) Assessment/Plan 1. recurrent syncope/near syncope - no remote alerts via FIRE1 on pacemaker for function or arrhythmias. 2. sick sinus syndrome s/p ppm - normal function as of Sep 27 download. Check today. 3. hx paf - <1% burden by most recent remote check 09/27. 4. hypertension - controlled. check for orthostasis 5. hyperlipidemia - check lipids 6. diabetes mellitus type 2 uncontrolled 7. renal insufficiency, mild likely secondary to dehydration Suggest check orthostatics, IVF as per PCP, blood sugar control, Pacemaker check , echo and carotid sonos. Continue on tele. MOOK HAN [employer] HAND Oct 02, 2018 16:35
[2018-10-02] MEDS: POTASSIUM CHLORIDE 20 MEQ TABLET.ER. PO SCH ×2 (17:08→20:59)
[2018-10-02 20:06] VITALS: BP_SYST 107; BP_SYST 111; BP_DIAS 52; BP_DIAS 63
[2018-10-02 20:07] VITALS: BP 106/54
[2018-10-02] MEDS: metFORMIN XR 500 MG TAB.ER.24H PO SCH (20:59)
[2018-10-02] MEDS: GLIMEPIRIDE 2 MG TABLET PO SCH (20:59)
--- NOTE | 2018-10-02 21:58 | PN ---
DATE: 10/02/2018 SUBJECTIVE: The patient is resting, slightly propped up in bed, in no apparent distress. She is awake, alert. On questioning her, she is complaining of pain in both shoulder joint and also the low back pain. She was admitted with poorly controlled type 2 diabetes. Her blood sugar was 534. She has dilutional hyponatremia and she was slightly dehydrated. Her urinalysis showed that she has yeast in her urine, treated with Diflucan and we did start her on Amaryl 2 mg once a day as well as metformin extended release 500 mg once a day. We will continue with all her other medications together with a low dose sliding scale. PHYSICAL EXAMINATION: GENERAL: When I saw her today, she looked well and was clearly in no apparent respiratory distress, pale, not jaundice, cyanosis or thyromegaly. No jugular venous distention. No limb edema. VITAL SIGNS: Her heart rate was 81, blood pressure was 111/66, temperature was 98.2, respiratory rate was 16, and oxygen saturation was 93% on room air. HEAD, EYES, EARS, NOSE AND THROAT: Showed normocephalic, atraumatic. NECK: Supple. HEART: Showed normal first and second heart sounds. No gallop, rub or murmur. CHEST: Clear to auscultation. No crepitation or rhonchi. ABDOMEN: Distended, soft, nontender. No guarding or rigidity. No organomegaly. All hernial orifice intact. Bowel sounds normal. NEUROLOGIC: She was awake, alert, hard of hearing with all cranial nerves intact. She moves extremities without difficulty. Her intake was 616 was recorded. LABORATORY DATA: Her lab work this morning showed a serum sodium 134, potassium 3.1, chloride was 99, bicarbonate 22, anion gap of 13, BUN 99, creatinine 0.8, estimated GFR was 67 mL per minute. Her glucose was 210 and calcium was 8.4. Her white cell count was 7000, hemoglobin 12.5, hematocrit 36.5, MCV 89 and platelet count of 150,000. ASSESSMENT: This is an 87-year-old female patient, who was admitted with poorly controlled blood sugar with marked hyperglycemia without any ketoacidosis. She has multiple other medical problems including acute kidney injury and due to dehydration, her creatinine was up to 1.2, has improved to 0.8. Has also hypokalemia, dilutional hyponatremia, hypertension, atrial fibrillation, sick sinus syndrome, generalized osteoarthritis, ensorineural deafness. PLAN: My plan is to increase her Amaryl to 2 mg twice a day and her Glucophage 500 mg twice a day. I will replenish her potassium and check her sed rate and C-reactive protein and decide the further management accordingly. LASHAY KOROMA MD DR: SKINNY/yaima JOB#: [id number] / [id number]
[2018-10-02 23:03] VITALS: BP 99/64
[2018-10-03] MEDS: IV NORMAL SALINE 1,000ML 1,000 ML IV SCH (05:30)
[2018-10-03 05:45] VITALS: BP 108/63
[2018-10-03 05:47] VITALS: BP 110/68
[2018-10-03 05:48] VITALS: BP 120/63
[2018-10-03 06:19] LABS: HEMATOCRIT 33.2 % (36.0-47.0); HEMOGLOBIN 11.4 g/dL (12.0-15.5); RED BLOOD COUNT 3.76 x10^6/uL (3.50-5.40); RED CELL DISTRIBUTION WIDTH 12.7 % (11.5-14.5); WHITE BLOOD COUNT 5.9 x10^3/uL (4.0-11.0)
[2018-10-03 06:24] LABS: CALCIUM 8.6 mg/dL (8.5-10.1); CREATININE 0.8 mg/dL (0.6-1.0); GFR 67.7; POTASSIUM 4.2 mmol/L (3.5-5.1)
[2018-10-03 08:49] VITALS: BP 120/63
[2018-10-03] MEDS: GLIMEPIRIDE 2 MG TABLET PO SCH (08:49)
[2018-10-03] MEDS: metFORMIN XR 500 MG TAB.ER.24H PO SCH (08:49)
[2018-10-03] MEDS: METOPROLOL SUCC 24HR ER 25 MG TAB.ER.24H. PO SCH (08:49)
[2018-10-03] MEDS: CLOPIDOGREL BISULFATE 75 MG TABLET PO SCH (08:50)
[2018-10-03] MEDS: APIXABAN 5 MG TABLET. PO SCH (08:50)
[2018-10-03] MEDS: CHOLECALCIFEROL (VITAMIN D3) 1,000 UNIT TABLET PO SCH (08:50)
[2018-10-03] MEDS: POTASSIUM CHLORIDE 20 MEQ TABLET.ER. PO SCH (08:50)
[2018-10-03] MEDS: INSULIN LISPRO 300 UNITS/3 ML INSULN.PEN. SQ SCH (08:54)
--- NOTE | 2018-10-03 11:15 | PDOC ---
PROGRESS NOTES Diagnosis Problem Problems Medical Problems: (1) Hyperglycemia Status: Acute (2) Yeast UTI Status: Acute Assessment Problems Medical Problems: (1) Hyperglycemia Status: Acute (2) Yeast UTI Status: Acute 1. recurrent syncope/near syncope - no remote alerts via Leo on pacemaker for function or arrhythmias , normal device check. No significant orthostasis. ? autonomic dysfunction. Syncope reportedly occurs ~every 6 months and has for years. TEDS when out of bed. 2. sick sinus syndrome s/p ppm - normal function as of Sep 27 download. Normal function by in hosp check. 3. hx paf - <1% 4. hypertension - controlled. no orthostasis. 5. hyperlipidemia - lipids pending 6. diabetes mellitus type 2 uncontrolled 7. renal insufficiency, mild likely secondary to dehydration, improved with fluids. Mgmt of hyperglycemia and discharge plan per PCP. Outpatient follow up as scheduled if no significant abn on echo. Subjective feeling better. no lightheadedness, dyspnea, chest pain or recurrent syncope. Objective Vital Signs Date Time Temp Pulse Resp B/P (MAP) Pulse Ox O2 Delivery O2 Flow Rate FiO2 10/03/18 08:49 72 120/63 10/03/18 08:00 Room Air 10/03/18 05:48 20 95 10/03/18 05:45 98.4 Intake and Output 10/03/18 07:00 Intake Total 2164 ml Balance 2164 ml Intake Oral 1190 ml IV Total 974 ml # Voids 2 # Bowel Movements 5 Abdomen: Normal bowel sounds Heart: Normal S1, Normal S2, Other (no significant murmurs, no gallops, clicks or rubs) Extremities: No cyanosis, No edema General: Alert, Oriented X3, Cooperative, No acute distress HEENT: Atraumatic, EOMI, Mucous membr. moist/pink Lungs: Clear to auscultation, Normal air movement Neuro: Normal speech, Strength at 5/5 X4 ext Psych/Mental Status: Mental status NL, Mood NL Review of Relevant I have reviewed the following items [place] (where applicable) has been applied. Labs Laboratory Tests Test 10/01/18 13:39 10/01/18 13:50 10/01/18 15:00 10/01/18 15:49 Glucose (Fingerstick) 534 mg/dL (70-99) 302 mg/dL (70-99) White Blood Count 7.1 x10^3/uL (4.0-11.0) Red Blood Count 4.09 x10^6/uL (3.50-5.40) Hemoglobin 12.5 g/dL (12.0-15.5) Hematocrit 36.5 % (36.0-47.0) Mean Corpuscular Volume 89 fL (79-100) Mean Corpuscular Hemoglobin 31 pg (25-35) Mean Corpuscular Hemoglobin Concent 34 g/dL (31-37) Red Cell Distribution Width 13.0 % (11.5-14.5) Platelet Count 150 x10^3/uL (140-400) Neutrophils (%) (Auto) 75 % (31-73) Lymphocytes (%) (Auto) 11 % (24-48) Monocytes (%) (Auto) 14 % (0-9) Eosinophils (%) (Auto) 0 % (0-3) Basophils (%) (Auto) 0 % (0-3) Neutrophils # (Auto) 5.3 x10^3uL (1.8-7.7) Lymphocytes # (Auto) 0.8 x10^3/uL (1.0-4.8) Monocytes # (Auto) 1.0 x10^3/uL (0.0-1.1) Eosinophils # (Auto) 0.0 x10^3/uL (0.0-0.7) Basophils # (Auto) 0.0 x10^3/uL (0.0-0.2) Sodium Level 129 mmol/L (136-145) Potassium Level 3.5 mmol/L (3.5-5.1) Chloride Level 94 mmol/L (98-107) Carbon Dioxide Level 25 mmol/L (21-32) Anion Gap 10 (6-14) Blood Urea Nitrogen 14 mg/dL (7-20) Creatinine 1.2 mg/dL (0.6-1.0) Estimated GFR (Cockcroft-Gault) 42.4 BUN/Creatinine Ratio 12 (6-20) Glucose Level 500 mg/dL (70-99) Calcium Level 8.8 mg/dL (8.5-10.1) Total Bilirubin 1.2 mg/dL (0.2-1.0) Aspartate Amino Transf (AST/SGOT) 18 U/L (15-37) Alanine Aminotransferase (ALT/SGPT) 22 U/L (14-59) Alkaline Phosphatase 71 U/L (46-116) Total Protein 7.2 g/dL (6.4-8.2) Albumin 3.4 g/dL (3.4-5.0) Albumin/Globulin Ratio 0.9 (1.0-1.7) Acetone Level Neg (NEG) Urine Collection Type Unknown Urine Color Yellow Urine Clarity Cloudy Urine pH 5.5 Urine Specific [place]son <=1.005 Urine Protein Neg (NEG-TRACE) Urine Glucose (UA) >=1000 mg/dL (NEG) Urine Ketones (Stick) 15 mg/dL (NEG) Urine Blood Small (NEG) Urine Nitrite Neg (NEG) Urine Bilirubin Neg (NEG) Urine Urobilinogen Dipstick 0.2 mg/dL (0.2 mg/dL) Urine Leukocyte Esterase Neg (NEG) Urine RBC 1-2 /HPF (0-2) Urine WBC 20-40 /HPF (0-4) Urine Squamous Epithelial Cells Mod /LPF Urine Bacteria Many /HPF (0-FEW) Urine Yeast Present /HPF Test 10/01/18 16:57 10/01/18 17:33 10/01/18 20:26 10/02/18 04:50 Glucose (Fingerstick) 226 mg/dL (70-99) 217 mg/dL (70-99) 368 mg/dL (70-99) Nasal Screen MRSA (PCR) Negative (Negative) Test 10/02/18 05:30 10/02/18 07:39 10/02/18 11:42 10/02/18 16:57 Sodium Level 134 mmol/L (136-145) Potassium Level 3.1 mmol/L (3.5-5.1) Chloride Level 99 mmol/L (98-107) Carbon Dioxide Level 22 mmol/L (21-32) Anion Gap 13 (6-14) Blood Urea Nitrogen 9 mg/dL (7-20) Creatinine 0.8 mg/dL (0.6-1.0) Estimated GFR (Cockcroft-Gault) 67.7 Glucose Level 210 mg/dL (70-99) Calcium Level 8.4 mg/dL (8.5-10.1) Glucose (Fingerstick) 225 mg/dL (70-99) 316 mg/dL (70-99) 269 mg/dL (70-99) Test 10/02/18 20:48 10/03/18 05:54 10/03/18 08:03 Glucose (Fingerstick) 261 mg/dL (70-99) 198 mg/dL (70-99) White Blood Count 5.9 x10^3/uL (4.0-11.0) Red Blood Count 3.76 x10^6/uL (3.50-5.40) Hemoglobin 11.4 g/dL (12.0-15.5) Hematocrit 33.2 % (36.0-47.0) Mean Corpuscular Volume 88 fL (79-100) Mean Corpuscular Hemoglobin 30 pg (25-35) Mean Corpuscular Hemoglobin Concent 34 g/dL (31-37) Red Cell Distribution Width 12.7 % (11.5-14.5) Platelet Count 155 x10^3/uL (140-400) Erythrocyte Sedimentation Rate 67 (0-25) Sodium Level 136 mmol/L (136-145) Potassium Level 4.2 mmol/L (3.5-5.1) Chloride Level 104 mmol/L (98-107) Carbon Dioxide Level 22 mmol/L (21-32) Anion Gap 10 (6-14) Blood Urea Nitrogen 9 mg/dL (7-20) Creatinine 0.8 mg/dL (0.6-1.0) Estimated GFR (Cockcroft-Gault) 67.7 Glucose Level 208 mg/dL (70-99) Calcium Level 8.6 mg/dL (8.5-10.1) C-Reactive Protein 146.5 mg/L (0-3.3) Microbiology 10/01/18 Urine Culture - Preliminary, Resulted 10/01/18 Urine Culture Result 1 (SANAZ) - Preliminary, Resulted Medications Current Medications Sodium Chloride 1,000 ml @ 1,000 mls/hr 1X ONCE IV Last administered on 10/01at 14:30; Start 10/01/18 at 14:30; Stop 10/01/18 at 15:29; Status DC Insulin Human Regular (HumuLIN R VIAL) 10 unit 1X ONCE IV Last administered on 10/01/18at 14:51; Start 10/01/18 at 15:00; Stop 10/01/18 at 15:01; Status DC Fluconazole (Diflucan) 150 mg 1X ONCE PO Last administered on 10/01/18at 15:57 ; Start 10/01/18 at 15:45; Stop 10/01/18 at 15:46; Status DC Ondansetron HCl (Zofran) 4 mg PRN Q4HRS PRN IV NAUSEA/VOMITING; Start at 16:00; Stop 10/02/18 at 15:59; Status DC Vitamin D (Vitamin D3) 1,000 unit DAILY PO Last administered on 10/03/18at 08: 50; Start 10/02/18 at 09:00 Clopidogrel Bisulfate (Plavix) 75 mg DAILY PO Last administered on 10/03/18at 08:50; Start 10/02/18 at 09:00 Metoprolol Succinate (Toprol Xl) 25 mg DAILY PO Last administered on at 08:49; Start 10/02/18 at 09:00 Apixaban (Eliquis) 5 mg BID PO Last administered on 10/03/18 08:50; Start at 21:00 Insulin Human Lispro (HumaLOG) 0-5 UNITS TIDWMEALS SQ Last administered on at 08:54; Start 10/01/18 at 17:00 Dextrose 12.5 gm PRN Q15MIN PRN IV SEE COMMENTS; Start 10/01/18 at 17:45 Glimepiride (Amaryl) 1 mg 1X ONCE PO Last administered on 10/01/18at 18:10; Start 10/01/18 at 17:45; Stop 10/01/18 at 17:46; Status DC Glimepiride (Amaryl) 2 mg DAILY PO Last administered on 10/02/18at 08:22; Start 10/02/18 at 09:00; Stop 10/02/18 at 14:36; Status DC Metformin HCl (Glucophage Xr) 500 mg DAILYWBKFT PO Last administered on at 08:22; Start 10/02/18 at 08:00; Stop 10/02/18 at 14:36; Status DC Glimepiride (Amaryl) 2 mg BID PO Last administered on 10/03/18at 08:49; Start 10/02/18 at 21:00 Metformin HCl (Glucophage Xr) 500 mg BID PO Last administered on 11/21/18at 08: 49; Start 10/02/18 at 21:00 Potassium Chloride (Klor-Con) 40 meq 1X ONCE PO Last administered on at 17:08; Start 10/02/18 at 15:00; Stop 10/02/18 at 15:01; Status DC Potassium Chloride (Klor-Con) 20 meq TID PO Last administered on 10/03/18at 08: 50; Start 10/02/18 at 15:00 Sodium Chloride 1,000 ml @ 75 mls/hr [id number] IV Last administered on at 05:30; Start 10/02/18 at 14:45 Enoxaparin Sodium (Lovenox 40mg Syringe) 40 mg Q24H SQ ; Start 10/02/18 at 14: 45; Stop 10/02/18 at 14:51; Status DC Active Scripts Active Reported Azo Cranberry Softgel (Cranberry Extract/Vit C) 1 Each Capsule 1 Each PO DAILY Eliquis (Apixaban) 5 Mg Tablet 5 Mg PO BID Toprol Xl (Metoprolol Succinate) 25 Mg Tab.er.24h 1 Tab PO DAILY Vitamin D3 (Cholecalciferol (Vitamin D3)) 1,000 Unit Tablet 1 Tab PO DAILY Plavix (Clopidogrel Bisulfate) 75 Mg Tablet 1 Tab PO DAILY LAST DOSE GIVEN: DATE: TODAY TIME: AM NEXT DOSE DUE: DATE: TOMORROW TIME: AM Vitals/I & O Vital Sign - Last 24 Hours 10/02/18 10/02/18 10/02/18 10/02/18 11:09 14:54 19:35 20:06 Temp 98.2 98.1 99.0 Pulse 68 94 73 Resp 18 20 18 B/P (MAP) 104/62 (76) 106/63 (77) 107/63 (78) Pulse Ox 93 94 92 O2 Delivery Room Air Room Air Room Air Room Air 10/02/18 10/02/18 10/02/18 10/03/18 20:06 20:07 23:03 05:45 Temp 99.4 98.4 Pulse 74 83 81 64 Resp 20 20 18 20 B/P (MAP) 111/52 (71) 106/54 (71) 99/64 (76) 108/63 (78) Pulse Ox 92 96 93 O2 Delivery Room Air Room Air Room Air Room Air 10/03/18 10/03/18 10/03/18 10/03/18 05:47 05:48 08:00 08:49 Pulse 79 72 72 Resp 20 20 B/P (MAP) 110/68 (82) 120/63 (82) 120/63 Pulse Ox 94 95 O2 Delivery Room Air Room Air Room Air Intake and Output 10/02/18 10/02/18 10/03/18 15:00 23:00 07:00 Intake Total 600 ml 240 ml 1324 ml Balance 600 ml 240 ml 1324 ml MOOK HAN [employer] Oct 03, 2018 11:15
--- NOTE | 2018-10-03 11:17 | CARD ---
MR#: [id number] Date of Study: 10/03/2018 Ordering Physician: MOOK HAN, Referring Physician: LASHAY KOROMA, Tech: Sarai Zamora APPROVED REPORT EXAM: Two-dimensional and M-mode echocardiogram with Doppler and color Doppler. Other Information Quality : AverageHR: 67bpm INDICATION Syncope Surgery/Intervention Pacemaker: RISK FACTORS Diabetes 2D DIMENSIONS RVDd2.5 (2.9-3.5cm)Left Atrium(2D)2.6 (1.6-4.0cm) IVSd0.9 (0.7-1.1cm)Aortic Root(2D)3.3 (2.0-3.7cm) LVDd4.5 (3.9-5.9cm)LVOT Diameter2.1 (1.8-2.4cm) PWd0.9 (0.7-1.1cm)LVDs2.8 (2.5-4.0cm) FS (%) 37.5 %SV61.6 ml LVEF(%)67.7 (>50%) Aortic Valve AoV Peak Gilles.159.2cm/sAoV VTI31.5cm AO Peak GR.10.1mmHgLVOT Peak Gilles.98.5cm/s LVOT VTI 20.32cmAO Mean GR.6mmHg YAZ (VMAX)2.98mz7YWK (VTI)2.28cm2 Mitral Valve MV E Nwfwamkw799.2cm/sMV DECEL [id number] MV A Bxnitzhc31.9cm/sE/A Ratio1.3 Pulmonary Valve PV Peak Tqdpjgqv50.2cm/sPV Peak Grad.4mmHg Tricuspid Valve TR P. Mvyirgqp633nu/sRAP BLCWNNUI1udGv TR Peak Gr.41ncIhPZGP42pvTt Pulmonary Vein S1 Ckmsgupo24.4cm/sD2 Fbgnzyyu30.8cm/s LEFT VENTRICLE The left ventricle is normal size. There is normal left ventricular wall thickness. The left ventricu lar systolic function is normal. The Ejection Fraction is 60-65%. There is normal LV segmental wall m otion. Transmitral Doppler flow pattern is normal for age. RIGHT VENTRICLE The right ventricle is normal size. There is normal right ventricular wall thickness. The right ventr icular systolic function is normal. ATRIA The left atrium size is normal. The right atrium size is normal. The interatrial septum is intact wit h no evidence for an atrial septal defect or patent foramen ovale as noted on 2-D or Doppler imaging. AORTIC VALVE The aortic valve is thickened but opens well. Doppler and Color Flow revealed mild aortic regurgitati on. There is no significant aortic valvular stenosis. MITRAL VALVE The mitral valve is normal in structure and function. Doppler and Color-flow revealed trace mitral re gurgitation. TRICUSPID VALVE The tricuspid valve is normal in structure and function. Doppler and Color Flow revealed trace tricus pid regurgitation. There is no tricuspid valve stenosis. PULMONIC VALVE The pulmonic valve is not well visualized. Doppler and Color Flow revealed mild pulmonic valvular reg urgitation. GREAT VESSELS The aortic root is normal in size. Normal pulmonary venous flow (Doppler). The IVC is normal in size and collapses >50% with inspiration. PERICARDIAL EFFUSION There is no evidence of significant pericardial effusion. Critical Notification Critical Value: No <Conclusion> The left ventricular systolic function is normal. The Ejection Fraction is 60-65%. There is normal LV segmental wall motion. Mild aortic regurgitation. Trace mitral regurgitation. Trace tricuspid regurgitation. There is no evidence of significant pericardial effusion. Signed by : Jean Lagunas, Electronically Approved : 10/03/2018 11:16:57
[2018-10-03] MEDS ORDERED: GLIM1TAB PO (11:27)
[2018-10-03] MEDS ORDERED: METF500T9 PO (11:28)
--- NOTE | 2018-10-03 14:09 | DS ---
DATE OF DISCHARGE: 10/03/2018 HOSPITAL COURSE: The patient is an 87-year-old female patient who was admitted with poorly controlled type 2 diabetes. She apparently was treated before with metformin immediate release and has lots of side effects and decided not to take it. She has also had multiple syncopal episodes and when she was admitted, her blood sugar was more than 500, we did consult the Cardiology team to interrogate her pacemaker and I did start her on Amaryl 2 mg twice a day as well as metformin extended release 500 mg twice a day and her blood sugar is somewhat better controlled, although not optimally yet. The Cardiology team basically did an echocardiogram, which showed that her left ventricular systolic function is normal, ejection fraction was 60-65%. She has normal left ventricular segmental wall motion. Pace wire noted in the right atrium and right ventricle. She has mild aortic regurgitation, trace mitral regurgitation, trace tricuspid regurgitation. There is no evidence of significant pericardial effusion. She had had recurrent syncope or near syncope. There was no evidence of remote alerts of her pacemaker for function or arrhythmia. Her device was checked and was normal. No significant orthostatics. She apparently has a syncopal episode occurring every 6 months and that has been for years now and KIERAN hoses were suggested when out of bed and as she remained stable, has had no further syncopal episode. A decision was made to discharge her home to continue with her current medication and to follow with her primary care physician, Dr. Dykes, to adjust her Amaryl and Glucophage. Meanwhile, should also check her blood sugar at least initially 4 times a day and eventually probably one time a day will be sufficient. PHYSICAL EXAMINATION: GENERAL: When I saw her today, she looked well and was clearly in no apparent respiratory distress, slightly pale, but no jaundice, cyanosis, or thyromegaly. No jugular venous distension. No limb edema. VITAL SIGNS: Her heart rate was 72, blood pressure 120/63, temperature was 98.4, respiratory rate 20, and oxygen saturation was 95%. The rest of clinical examination is unremarkable. LABORATORY DATA: Her lab work this morning showed white cell count 5900, hemoglobin 11, hematocrit 33, MCV 88, and platelet count of 155,000. Her serum sodium was 136, potassium 4.2, chloride 104, bicarbonate 22, anion gap of 10, BUN 9, creatinine 0.9, estimated GFR was 67 mL per minute. Her glucose was 198 and calcium was 8.6. Her urinalysis was unremarkable and toxic screen was negative. DISCHARGE MEDICATIONS: She was discharged home to continue on following medications: glimepiride for Amaryl 2 mg twice a day, metformin extended release 500 mg twice a day, apixaban 5 mg twice a day, cholecalciferol for vitamin D3 1000 international units once a day, Plavix 75 mg once a day, cranberry extract with vitamin C 1 tablet daily and metoprolol succinate for Toprol-XL 25 mg once a day. FINAL DISCHARGE DIAGNOSES: Poorly controlled type 2 diabetes, much better controlled now, Amaryl and metformin. OTHER MEDICAL PROBLEMS: Include acute kidney injury that resolved. Her creatinine came down from 1.2 to 0.8. Hypokalemia, resolved. Dilutional hyponatremia, resolved. Hypertension, atrial fibrillation, sick sinus syndrome, generalized osteoarthritis, sensorineural deafness. LASHAY KOROMA MD DR: SKINNY/yaima JOB#: [id number] / [id number]
== END 2018-10-03 12:00 | disposition home or self-care (01) | DRG 637 ==
LOC: ER 13:18 → 1 SOUTH 15:50
PROVIDERS: ADMIT Internal Medicine; ATTEND Internal Medicine
DX: E11.00 Type 2 diabetes mellitus with hyperosmolarity without nonketotic hyperglycemic-hyperosmolar coma (NKHHC) (principal); N17.0 Acute kidney failure with tubular necrosis; E87.1 Hypo-osmolality and hyponatremia; B37.49 Other urogenital candidiasis; E11.43 Type 2 diabetes mellitus with diabetic autonomic (poly)neuropathy; E11.649 Type 2 diabetes mellitus with hypoglycemia without coma; E11.65 Type 2 diabetes mellitus with hyperglycemia; E78.00 Pure hypercholesterolemia, unspecified; E78.5 Hyperlipidemia, unspecified; E86.0 Dehydration; E87.6 Hypokalemia; H90.5 Unspecified sensorineural hearing loss; I10 Essential (primary) hypertension; M54.5 Low back pain; I48.0 Paroxysmal atrial fibrillation; I49.5 Sick sinus syndrome; M15.9 Polyosteoarthritis, unspecified; Z80.1 Family history of malignant neoplasm of trachea, bronchus and lung; Z82.0 Family history of epilepsy and other diseases of the nervous system; Z82.5 Family history of asthma and other chronic lower respiratory diseases; Z90.710 Acquired absence of both cervix and uterus; Z95.0 Presence of cardiac pacemaker; Z90.49 Acquired absence of other specified parts of digestive tract; Z88.8 Allergy status to other drugs, medicaments and biological substances
CPT/HCPCS: 36415; 80048; 80053; 80061; 81001; 82010; 82947; 85025; 85027; 85651; 86140; 87086; 87186; 87641; 93005; 93306; 96361; 96374; J1815; 99285-25; J7030

== ENCOUNTER 2018-11-19 11:10 | Inpatient (IN) | payer MEDICARE ==
[~2018-11-19] VITALS: Ht 160 cm; Wt 62.3 kg
[~2018-11-19 11:10] MED LIST changes: +APIX5TAB3 PO; +CHOL10003 PO; +CRAN1CAP12 PO; +GLIM1TAB PO; +METF500T9 PO; +METO25TA2 PO
[2018-11-19 11:39] LABS: BASO % 1 % (0-3); EOS # 0.1 x10^3/uL (0.0-0.7); EOS % 1 % (0-3); HEMOGLOBIN 13.9 g/dL (12.0-15.5); LYMPH # 1.1 x10^3/uL (1.0-4.8); LYMPH % 23 % (24-48); MEAN CORPUSCULAR HEMOGLOBIN 31 pg (25-35); MEAN CORPUSCULAR HGB CONC 34 g/dL (31-37); MEAN CORPUSCULAR VOLUME 90 fL (79-100); MONO # 0.6 x10^3/uL (0.0-1.1); MONO % 11 % (0-9); NEUT # 3.1 x10^3uL (1.8-7.7); NEUT % 64 % (31-73); PLATELET COUNT 189 x10^3/uL (140-400); RED BLOOD COUNT 4.56 x10^6/uL (3.50-5.40); RED CELL DISTRIBUTION WIDTH 14.7 % (11.5-14.5); WHITE BLOOD COUNT 4.9 x10^3/uL (4.0-11.0)
[2018-11-19 11:57] LABS: ALBUMIN 4.1 g/dL (3.4-5.0); ALBUMIN/GLOBULIN RATIO 1.1 (1.0-1.7); CALCIUM 9.3 mg/dL (8.5-10.1); GFR 52.3; MAGNESIUM 2.1 mg/dL (1.8-2.4); POTASSIUM 4.3 mmol/L (3.5-5.1); TOTAL BILIRUBIN 0.5 mg/dL (0.2-1.0); TOTAL PROTEIN 7.7 g/dL (6.4-8.2)
--- NOTE | 2018-11-19 12:05 | RAD ---
CT HEAD INDICATION: CONFUSION COMPARISON: 12/18/2016 Exposure: One or more of the following individualized dose reduction techniques were utilized for this examination: 1. Automated exposure control 2. Adjustment of the mA and/or kV according to patient size 3. Use of iterative reconstruction technique TECHNIQUE: 5 mm contiguous axial images were obtained from the skull base to the vertex in both bone and soft tissue algorithm. FINDINGS: Mild bilateral periventricular white matter hypodensities likely chronic small vessel ischemic disease. No evidence of acute intracranial hemorrhage. No extra-axial fluid collections. No mass effect or midline shift. Ventricular size is appropriate. Basal cisterns are patent. No fractures identified.Gutierrez-white differentiation is preserved.Globes and orbits are within normal limits. Paranasal sinuses and mastoid air cells are clear. Atherosclerotic calcifications identified in the right vertebral artery. IMPRESSION: No acute intracranial findings. Electronically signed by: Prasahnth Thorpe MD (11/19/2018 12:01 PM) [id number]
--- NOTE | 2018-11-19 12:08 | RAD ---
EXAM: CHEST 1 VIEW History: Confusion COMPARISON: 08/16/2017 TECHNIQUE: Single portable radiograph of the chest FINDINGS: The cardiac silhouette is unremarkable. The lungs are clear bilaterally. The costophrenic sulci are clear and well demarcated. Left-sided cardiac pacer is unchanged. IMPRESSION: No radiographic evidence of an acute cardiopulmonary process. Electronically signed by: Prashanth Thorpe MD (11/19/2018 12:04 PM) [id number]
[2018-11-19 12:45] LABS: BILIRUBIN,URINE NEG (NEG); CLARITY,URINE TURBID; COLOR,URINE YELLOW; GLUCOSE,URINE NEG (NEG)
[2018-11-19 12:46] LABS: BACTERIA,URINE MANY /HPF (0-FEW); NITRITE,URINE POS (NEG); RBC,URINE 0 /HPF (0-2); SQUAMOUS EPITHELIAL CELL,UR FEW /LPF; UROBILINOGEN,URINE 0.2 mg/dL (0.2 mg/dL)
[2018-11-19] MEDS ORDERED: IV NORMAL SALINE 1,000ML 1,000 ML IV ONE (13:00)
--- NOTE | 2018-11-19 13:21 | PHYS DOC ---
Past History Past Medical History: A-Fib, Diabetes, High Cholesterol, Hypertension, Other Past Surgical History: Colectomy, Hysterectomy, Oophorectomy, Pacemaker Alcohol Use: None Drug Use: None Adult General Chief Complaint Chief Complaint: WEAKNESS/GENERALIZED HPI HPI Patient is a 87 year old female brought in by EMS because of right leg weakness since yesterday. Patient complaining of constant right leg weakness without pain , edema, erythema, focal neuro deficit. She denies headache, nausea and vomiting , chest pain, shortness of breath, fever and chills, urinary symptoms, focal neuro deficit. Patient's daughter started states she was more lethargic than her usual today and did not want to eat. Review of Systems Review of Systems Constitutional: Denies fever or chills [] Eyes: Denies change in visual acuity, redness, or eye pain [] HENT: Denies nasal congestion or sore throat [] Respiratory: Denies cough or shortness of breath [] Cardiovascular: No additional information not addressed in HPI [] GI: Denies abdominal pain, nausea, vomiting, bloody stools or diarrhea [] : Denies dysuria or hematuria [] Musculoskeletal: Denies back pain or joint pain [] Integument: Denies rash or skin lesions [] Neurologic: Denies headache, sensory changes, reports focal weakness [] Endocrine: Denies polyuria or polydipsia [] All other systems were reviewed and found to be within normal limits, except as documented in this note. Current Medications Current Medications Current Medications Medications (Trade) Dose Ordered Sig/Charlee Start Time Stop Time Status Last Admin Dose Admin Ceftriaxone Sodium 1 gm/ Sodium Chloride 50 ml @ 100 mls/hr 1X ONCE 11/19/18 13:00 11/19/18 13:29 Sodium Chloride 1,000 ml @ 1,000 mls/hr 1X ONCE 11/19/18 13:00 11/19/18 13:59 Allergies Allergies Allergies Coded Allergies Type Severity Reaction Last Updated Verified aspirin Allergy Intermediate 10/22/14 Yes I S O L A T I O N *CONTACT* Allergy Unknown 05/25/15 No Physical Exam Physical Exam Constitutional: Well developed, mild distress, non-toxic appearance. [] HENT: Normocephalic, atraumatic, oropharynx moist, no oral exudates, nose normal. [] Eyes: PERRLA, EOMI, conjunctiva normal, no discharge. [] Neck: Normal range of motion, no tenderness, supple, no stridor. [] Cardiovascular:Heart rate regular rhythm, no murmur [] Lungs & Thorax: Bilateral breath sounds clear to auscultation [] Abdomen: Bowel sounds normal, soft, no tenderness, no masses, no pulsatile masses. [] Skin: Warm, dry, no erythema, no rash. [] Back: No tenderness, no CVA tenderness. [] Extremities: Right lower extremity without weakness or focal neuro deficit or sign of injury, no tenderness, no cyanosis, no clubbing, ROM intact, no edema. [ ] Neurologic: Alert and oriented X 2, normal motor function, normal sensory function, no focal deficits noted. [] Psychologic: Affect normal, judgement normal, mood normal. [] Current Patient Data Vital Signs Vital Signs Date Time Temp Pulse Resp B/P (MAP) Pulse Ox O2 Delivery O2 Flow Rate FiO2 11/19/18 12:39 63 18 119/85 (96) 98 Room Air 11/19/18 11:10 97.6 Lab Results Laboratory Tests Test 11/19/18 11:24 11/19/18 11:40 11/19/18 12:15 White Blood Count 4.9 x10^3/uL (4.0-11.0) Red Blood Count 4.56 x10^6/uL (3.50-5.40) Hemoglobin 13.9 g/dL (12.0-15.5) Hematocrit 41.0 % (36.0-47.0) Mean Corpuscular Volume 90 fL (79-100) Mean Corpuscular Hemoglobin 31 pg (25-35) Mean Corpuscular Hemoglobin Concent 34 g/dL (31-37) Red Cell Distribution Width 14.7 % (11.5-14.5) H Platelet Count 189 x10^3/uL (140-400) Neutrophils (%) (Auto) 64 % (31-73) Lymphocytes (%) (Auto) 23 % (24-48) L Monocytes (%) (Auto) 11 % (0-9) H Eosinophils (%) (Auto) 1 % (0-3) Basophils (%) (Auto) 1 % (0-3) Neutrophils # (Auto) 3.1 x10^3uL (1.8-7.7) Lymphocytes # (Auto) 1.1 x10^3/uL (1.0-4.8) Monocytes # (Auto) 0.6 x10^3/uL (0.0-1.1) Eosinophils # (Auto) 0.1 x10^3/uL (0.0-0.7) Basophils # (Auto) 0.0 x10^3/uL (0.0-0.2) Sodium Level 140 mmol/L (136-145) Potassium Level 4.3 mmol/L (3.5-5.1) Chloride Level 103 mmol/L (98-107) Carbon Dioxide Level 24 mmol/L (21-32) Anion Gap 13 (6-14) Blood Urea Nitrogen 13 mg/dL (7-20) Creatinine 1.0 mg/dL (0.6-1.0) Estimated GFR (Cockcroft-Gault) 52.3 BUN/Creatinine Ratio 13 (6-20) Glucose Level 172 mg/dL (70-99) H Calcium Level 9.3 mg/dL (8.5-10.1) Magnesium Level 2.1 mg/dL (1.8-2.4) Total Bilirubin 0.5 mg/dL (0.2-1.0) Aspartate Amino Transferase (AST) 14 U/L (15-37) L Alanine Aminotransferase (ALT) 18 U/L (14-59) Alkaline Phosphatase 63 U/L (46-116) Creatine Kinase 34 U/L (26-192) Troponin I Quantitative < 0.017 ng/mL (0-0.055) SF-Jcl-T-Type Natriuretic Peptide 116 pg/mL (0-449) Total Protein 7.7 g/dL (6.4-8.2) Albumin 4.1 g/dL (3.4-5.0) Albumin/Globulin Ratio 1.1 (1.0-1.7) Lactic Acid Level 2.8 mmol/L (0.4-2.0) H Urine Collection Type Unknown Urine Color Yellow Urine Clarity Turbid Urine pH 6.0 Urine Specific [place] 1.010 Urine Protein Neg (NEG-TRACE) Urine Glucose (UA) Neg mg/dL (NEG) Urine Ketones (Stick) Neg mg/dL (NEG) Urine Blood Neg (NEG) Urine Nitrite Pos (NEG) Urine Bilirubin Neg (NEG) Urine Urobilinogen Dipstick 0.2 mg/dL (0.2 mg/dL) Urine Leukocyte Esterase Mod (NEG) Urine RBC 0 /HPF (0-2) Urine WBC 11-20 /HPF (0-4) Urine Squamous Epithelial Cells Few /LPF Urine Bacteria Many /HPF (0-FEW) EKG EKG EKG interpreted by me. EKG at 1136 showed normal sinus rhythm at rate of 61, left clemons axis, otherwise normal EKG[] Radiology/Procedures Radiology/Procedures [address] [address] IMAGING REPORT Signed PATIENT: CHARLENE VIZCAINO ACCOUNT: [id number] : 1930 LOCATION: ER AGE: 87 SEX: F EXAM STATUS: REG ER ORD. PHYSICIAN: JEWEL LOZANO MD REASON: confusion PROCEDURE: PORTABLE CHEST 1V EXAM: CHEST 1 VIEW History: Confusion COMPARISON: 08/16/2017 TECHNIQUE: Single portable radiograph of the chest FINDINGS: The cardiac silhouette is unremarkable. The lungs are clear bilaterally. The costophrenic sulci are clear and well demarcated. Left-sided cardiac pacer is unchanged. IMPRESSION: No radiographic evidence of an acute cardiopulmonary process. Electronically signed by: Prashanth Thorpe MD (11/19/2018 12:04 PM) [facility] DICTATED AND SIGNED BY: PRASHANTH THORPE MD DATE: 11/19/18 1202 CC: JEWEL LOZANO MD; MARCIAL GONZALEZ MD ~ [address] [address] IMAGING REPORT Signed PATIENT: CHARLENE VIZCAINO ACCOUNT: [id number] : 1930 LOCATION: ER AGE: 87 SEX: F EXAM STATUS: REG ER ORD. PHYSICIAN: JEWEL LOZANO MD REASON: confusion PROCEDURE: CT HEAD WO CONTRAST CT HEAD INDICATION: CONFUSION COMPARISON: 12/18/2016 Exposure: One or more of the following individualized dose reduction techniques were utilized for this examination: 1. Automated exposure control 2. Adjustment of the mA and/or kV according to patient size 3. Use of iterative reconstruction technique TECHNIQUE: 5 mm contiguous axial images were obtained from the skull base to the vertex in both bone and soft tissue algorithm. FINDINGS: Mild bilateral periventricular white matter hypodensities likely chronic small vessel ischemic disease. No evidence of acute intracranial hemorrhage. No extra-axial fluid collections. No mass effect or midline shift. Ventricular size is appropriate. Basal cisterns are patent. No fractures identified.Gutierrez-white differentiation is preserved.Globes and orbits are within normal limits. Paranasal sinuses and mastoid air cells are clear. Atherosclerotic calcifications identified in the right vertebral artery. IMPRESSION: No acute intracranial findings. Electronically signed by: Prashanth Thorpe MD (11/19/2018 12:01 PM) [facility] DICTATED AND SIGNED BY: PRASHANTH THORPE MD DATE: 11/19/18 1159 CC: JEWEL LOZANO MD; MARCIAL GONZALEZ MD ~ Course & Med Decision Making Course & Med Decision Making Pertinent Labs and Imaging studies reviewed. (See chart for details) Evaluation of patient in ER showed 87-year-old female patient brought in by EMS because of right lower extremity weakness since yesterday and confusion. Patient was alert and oriented 2 as her baseline condition according to her daughter. Labs showed elevation of lactic acid and UTI. Patient treated with IV fluid and antibiotic in ER. Dr. Ruiz accepted admission at 1318. Dragon Disclaimer Dragon Disclaimer This electronic medical record was generated, in whole or in part, using a voice recognition dictation system. Departure Departure: Impression: Primary Impression: Sepsis Additional Impressions: Urinary tract infection Right leg weakness Disposition: 09 ADMITTED INPATIENT (at 1320) Admitting Physician: Juhi Ruiz (accepted admission at 1318) Condition: IMPROVED Referrals: MARCIAL GONZALEZ MD (PCP) Problem Qualifiers JEWEL LOZANO MD Nov 19, 2018 13:21
[2018-11-19] MEDS ORDERED: cefTRIAXone SODIUM 1 GM VIAL IV ONE (13:27)
[2018-11-19] MEDS ORDERED: IV NORMAL SALINE 50ML 50 ML ONE (13:27)
[2018-11-19 14:55] VITALS: BP 143/72
[2018-11-19] MEDS: IV NORMAL SALINE 1,000ML 1,000 ML IV SCH (15:25)
[2018-11-19] MEDS ORDERED: GLIM2TAB2 PO (15:33)
[2018-11-19] MEDS ORDERED: GLIM4TAB2 PO (15:33)
--- NOTE | 2018-11-19 17:33 | EKG ---
[address] [address] Test Date: 2018-11-19 Test Time: 11:36:06 Pat Name: CHARLENE VIZCAINO Department: Room: Gender: F [employer]: NUSRAT : 1930 Requested By: JEWEL LOZANO Order Number: [id number] Reading MD: Measurements Intervals Odd Rate: 0 P: MS: QRS: 0 QRSD: 0 T: 0 QT: 0 QTc: 0 Interpretive Statements SINUS RHYTHM LEFTWARD AXIS OTHERWISE NORMAL ECG RI6.01 Unconfirmed report No previous ECG available for comparison
--- NOTE | 2018-11-19 19:16 | HP ---
ADMIT DATE: 11/19/2018 HISTORY OF PRESENT ILLNESS: The patient is an 87-year-old female patient, who came to the Emergency Room, complaining right leg weakness that started about 5 days ago. She did complain that she has constant right leg weakness without pain, edema, erythema, or focal neurological deficit. She denied any headache, nausea, vomiting, blurring of vision, tingling and numbness. The patient's daughter stated that she was more lethargic than her usual, did not want to eat and she was brought to the Emergency Room where she was extensively investigated. She had had a CT scan of the head, which was basically unremarkable and her lab work also showed that she has urinary tract infection and was admitted for the treatment of urinary tract infection to investigate her further. PAST MEDICAL HISTORY: Significant for hypertension, atrial fibrillation, sick sinus syndrome, generalized osteoarthritis, sensorineural deafness and type 2 diabetes. PAST SURGICAL HISTORY: Significant for total abdominal hysterectomy, bilateral cataract extraction, appendectomy, partial colon resection, permanent pacemaker placement and breast reduction surgery. ALLERGIES: She is allergic to ASPIRIN. MEDICATIONS: She is currently on following medications: She is on apixaban 5 mg twice a day, Plavix 75 mg once a day, metoprolol succinate 25 mg daily, glimepiride 2 mg with supper and glimepiride 4 mg with breakfast, cholecalciferol, vitamin D3 [employer] once a day, and cranberry extract with vitamin C 1 tablet daily. FAMILY HISTORY: Strongly positive for lung cancer in her brother and sisters. Her father at the age of 60 because of emphysema and mother in her 80s because of Alzheimer's disease. SOCIAL HISTORY: She is . Her daughter lives with her. She has 3 living daughters and one of her younger daughter of a neurodegenerative disease. She has never smoked, does not drink alcohol. 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 REVIEW OF SYSTEMS: The patient denied any blurring of vision. She has bilateral cataract extraction, but denied any glaucoma or macular degeneration. Denied any earache, tinnitus or sensorineural deafness. Denied any nosebleeds, stuffy nose or postnasal drip. Denied any sore throat, sore tongue, toothache, hoarseness of voice or difficulty swallowing. Denied any nausea, vomiting, diarrhea or constipation. Denied any hematemesis, melena or hematochezia. Denied any dysuria, frequency or hematuria. Denied any chest pain, shortness of breath, orthopnea, paroxysmal nocturnal dyspnea. Denied any dizziness, lightheadedness, or vertigo. Her only complaint was a right leg weakness issue that her hip joint gives way when she walks and this happening about 5 days ago. Denied any loss of bladder or bowel control. Denied any tingling or numbness. Denied actual weakness, she just feels that her hip giving way while in the Emergency Room. PHYSICAL EXAMINATION: GENERAL: On arrival, the patient looked well and was clearly in no apparent respiratory distress, slightly pale, but no jaundice, cyanosis, or thyromegaly. No jugular venous distension. No limb edema. VITAL SIGNS: Her heart rate was 81, blood pressure 119/85, temperature was 97.6, respiratory rate was 18 and oxygen saturation was 99% on room air. HEAD, EYES, EARS, NOSE, AND THROAT: Showed normocephalic, atraumatic. NECK: Supple. HEART: Showed normal first and second heart sounds. No gallop, rub or murmur. CHEST: Clear to auscultation. No crepitation or rhonchi. ABDOMEN: Distended, soft, nontender. No guarding or rigidity. No organomegaly. All hernial orifices intact. Bowel sounds normal. NEUROLOGIC: She is awake, alert, responding appropriately. All cranial nerves intact. She moves extremities without difficulty. She was able to ambulate to the bathroom this afternoon without difficulty. LABORATORY DATA: On arrival showed a white cell count 4900, hemoglobin 13.9, hematocrit 41, MCV 90, and platelet count of 189,000 with normal manual differential. Her serum sodium was 140, potassium 4.3, chloride 103, bicarbonate 24, anion gap 13, BUN 13, creatinine 1, estimated GFR was 52 mL per minute. Her glucose was 172. Lactic acid was 2.8, calcium was 9.3, magnesium 2.1. Total bilirubin, AST, ALT, alkaline phosphatase were normal. Her total protein was 7.7, albumin was 4.1. She has had a CT scan of the head, which basically showed mild bilateral periventricular white matter hypodensities, likely chronic small vessel ischemic disease. She has no evidence of acute intracranial hemorrhage, no extraaxial fluid collection, no mass effect or midline shift, ventricular size is appropriate. Basilar cisterns are patent. No fracture identified. Travis and white matter differentiation is preserved. Globes and orbits are within normal limits. Paranasal sinuses and mastoid air cells are well aerated. She has atherosclerotic calcification identified in the right vertebral artery. IMPRESSION AND PLAN: No acute intracranial finding. Her urinalysis showed the urine was positive for nitrite. There was moderate amount of leukocyte esterase with 11-20 wbc's. The patient was admitted and was started on IV ceftriaxone. We will continue with all her other medications. We will get physical and occupational therapy. I will also arrange for her to have x-ray of her pelvis, both hip joints and we will decide the further management accordingly. LASHAY KOROMA MD DR: SKINNY/yaima JOB#: [id number] / [id number]
[2018-11-19 19:56] VITALS: BP 120/63
[2018-11-19] MEDS: APIXABAN 5 MG TABLET. PO SCH (21:36)
[2018-11-19 23:00] VITALS: BP 126/67
--- NOTE | 2018-11-19 23:53 | RAD ---
Examination: HIP BILATERAL WITH PELVIS History: Pelvic pain and right posterior hip pain, weakness Comparison/Correlation: 09/23/2016 CT abdomen and pelvis without contrast Findings: Frontal view of the pelvis was obtained. Frog-leg lateral view of the right hip and frog-leg lateral view of the left hip were obtained. Hip joints are symmetric with spurring of the acetabulum bilaterally noted. Sacroiliac joints are symmetric. No acute fracture or bony destructive change. Impression: No suspicious process. Consider further evaluation if occult fracture is a persistent concern. Electronically signed by: Memo Gaxiola MD (11/19/2018 11:49 PM) [facility]
[2018-11-20] MEDS: IV NORMAL SALINE 1,000ML 1,000 ML IV SCH (03:30)
[2018-11-20 06:25] VITALS: BP 113/69
[2018-11-20 06:41] LABS: HEMOGLOBIN 12.5 g/dL (12.0-15.5); RED BLOOD COUNT 4.05 x10^6/uL (3.50-5.40); RED CELL DISTRIBUTION WIDTH 14.2 % (11.5-14.5); WHITE BLOOD COUNT 4.1 x10^3/uL (4.0-11.0)
[2018-11-20 06:47] LABS: ALBUMIN 3.4 g/dL (3.4-5.0); ALBUMIN/GLOBULIN RATIO 1.1 (1.0-1.7); CALCIUM 8.6 mg/dL (8.5-10.1); CREATININE 0.9 mg/dL (0.6-1.0); GFR 59.1; POTASSIUM 3.9 mmol/L (3.5-5.1); TOTAL BILIRUBIN 0.4 mg/dL (0.2-1.0); TOTAL PROTEIN 6.5 g/dL (6.4-8.2)
[2018-11-20] MEDS ORDERED: GLIMEPIRIDE 2 MG TABLET PO SCH ×2 (08:00→17:00)
[2018-11-20] MEDS: APIXABAN 5 MG TABLET. PO SCH (08:09)
[2018-11-20] MEDS ORDERED: NON FORMULARY ITEM (Cranberry Extract/Vit C (Azo Cranberry Softgel) 1 EACH) PO SCH (09:00)
[2018-11-20] MEDS ORDERED: CHOLECALCIFEROL (VITAMIN D3) 1,000 UNIT TABLET PO SCH (09:00)
[2018-11-20] MEDS ORDERED: METOPROLOL SUCC 24HR ER 25 MG TAB.ER.24H. PO SCH (09:00)
[2018-11-20] MEDS ORDERED: CLOPIDOGREL BISULFATE 75 MG TABLET PO SCH (09:00)
[2018-11-20 10:19] VITALS: BP 127/75
--- NOTE | 2018-11-20 13:51 | RAD ---
CT HEAD WO CONTRAST History: New onset right-sided weakness Comparison: November 19, 2018; December 18, 2016 Technique: Noncontrast CT imaging was performed of the head. Exposure: One or more of the following individualized dose reduction techniques were utilized for this examination: 1. Automated exposure control 2. Adjustment of the mA and/or kV according to patient size 3. Use of iterative reconstruction technique. Findings: There is some motion degradation. No acute intracranial hemorrhage is identified. Ventricular size is proportionate to the sulcal spaces and stable in interval, mild generalized supratentorial atrophy. There is again small focus of low density of the left temporal matter unchanged compared with older exam in 2017, also old lacunar infarct at the lateral margin of the posterior right lateral ventricle also unchanged comparing with older exam. There is also small old lacunar infarct of the left basal ganglia centered in the anterior limb of left internal capsule as seen previously. There is no new intra-axial mass effect or midline shift. There is atherosclerotic calcification bilateral carotid siphons and right intradural vertebral artery. Impression: 1. 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 If there is ongoing suspicion for more recent infarct, CT or MRI follow-up may be beneficial. There is again generalized supratentorial atrophy. Electronically signed by: Noe Feliciano MD (11/20/2018 1:47 PM) [facility]
--- NOTE | 2018-11-20 15:47 | DS ---
DATE OF DISCHARGE: 11/19/2018 HISTORY OF PRESENT ILLNESS: The patient is an 87-year-old female patient, who was brought yesterday to the Emergency Room complaining of right leg weakness that started about 5 days ago. She did complain that she has constant right leg weakness without pain, edema, erythema, or focal neurological deficits. She denied any headache, nausea, vomiting, blurring of vision, tingling or numbness. The patient's daughter stated that she was more lethargic than her usual. Did not want to eat and she was brought to the Emergency Room where she was extensively investigated. She had a CT scan of the head, which was basically unremarkable. Her lab work also showed that she has urinary tract infection and was admitted for treatment of urinary tract infection and to investigate her further. In fact, on further questioning, she said her complaint was mostly that her right hip gives way and in fact by the time she arrived to the hospital, she was able to walk on her own from the bed to the bathroom unassisted. Unfortunately, around to this morning, she became clear that she developed right-sided weakness. She was definitely weaker today and was unable to walk on her own. The weakness involves both right upper and right lower extremities and her voice was also somewhat dysarthric and therefore a decision was made to transfer her to [facility]. We did repeat another CT scan this morning to see if there are any changes and in fact compared to yesterday's CT scan, today's CT scan showed no acute intracranial abnormality identified. With the CT scan, she had a small old lacunar infarct seen on an old 2017 exam. There is ongoing suspicion for more recent infarct. CT or MRI followup may be beneficial. Unfortunately, the patient has pacemaker that may or may not be compatible with the MRI, and therefore, the patient was transferred to [facility] to consult the neurologist and to arrange for bilateral carotid Doppler ultrasound and her fasting lipid profile. The patient is already on Plavix as well as apixaban. We gave her aspirin this morning. PHYSICAL EXAMINATION: GENERAL: When I saw her this afternoon, she was sitting slightly propped up in bed, in no apparent distress. She was awake, alert, pale somewhat, but not jaundiced, cyanosed, or thyromegaly. No jugular venous distention. No limb edema. VITAL SIGNS: Her heart rate was 64, blood pressure was 127/75, temperature was 97.5, respiratory rate was 18 and oxygen saturation was 96%. HEAD, EYES, EARS, NOSE, AND THROAT: Showed normocephalic, atraumatic. NECK: Supple. HEART: Showed normal first and second heart sounds with no gallop, rub, or murmur. CHEST: Clear to auscultation. No crepitation or rhonchi. ABDOMEN: Distended, soft, nontender. NEUROLOGIC: She was awake, alert, responding appropriately. All cranial nerves intact. She definitely has right-sided weakness. She was unable to get out of the bed to the wheelchair unaided and required 2-person assist. LABORATORY DATA: Her lab work this morning showed a white cell count of 4100, hemoglobin 12.5, hematocrit 36, MCV 89, and platelet count of 168,000. Her chemistry showed a serum sodium of 141, potassium 3.9, chloride 107, bicarbonate 24, anion gap of 10, BUN 11, creatinine 0.9, estimated GFR was 59 mL per minute. Her glucose was 112, calcium was 8.6. Total bilirubin, AST, ALT, alkaline phosphatase were normal. Total protein was 6.5, albumin was 3.4. Her urinalysis showed the urine was yellow, turbid with pH of 6, specific gravity of 1.010. The urine was negative for protein, glucose, ketones, blood and positive for nitrites and moderate amount of leukocyte esterase. There is no rbc's, 11-20 wbc's, and many bacteria. Her urine culture is still pending at the time of this dictation. She had a CT scan of the head on arrival yesterday, which showed that there are mild bilateral periventricular white matter hypodensities, likely chronic small vessel ischemic disease. No evidence of acute intracranial hemorrhage. No extraaxial fluid collection. No mass effect or midline shift. Ventricular size is appropriate. Basal cisterns are patent. No fracture identified. Gutierrez-white differentiation is preserved. Globes and orbits are within normal limits. Paranasal sinuses and mastoid air cells are clear. She has atherosclerotic calcification identified in the right vertebral artery. Her chest x-ray showed no radiographic evidence of acute cardiopulmonary process. X-ray of the hip and pelvis showed that the hip joints are symmetric with sparing of the acetabulum bilaterally. Sacroiliac joints are symmetric. No acute fracture or bony destructive changes were observed and a repeat CT scan of the head without contrast this morning showed that there is no acute intracranial hemorrhage identified. Ventricular size is proportionate to the sulcal spaces and stable interval. Mild generalized supratentorial atrophy. There is again small focus of lower density of the left temporal matter, unchanged compared to an older exam in 2017, also old lacunar infarct in the lateral margin of the posterior right lateral ventricle also unchanged comparing with older exam. There is also small old lacunar infarct to the left basal ganglia centered in the anterior limb of the left internal capsule. As seen previously, there is no new intraaxial mass effect or midline shift. There is atherosclerotic calcification of bilateral carotid siphons and right intradural vertebral artery. The patient will be transferred to [facility]. We will consult Dr. Vuong. We will arrange for her to have bilateral Doppler ultrasound. We will inquire whether her pacemaker is compatible with MRI and check her lipid profile. We will continue with Plavix and apixaban. LASHAY KOROMA MD DR: SKINNY/yaima JOB#: [id number] / [id number]
[2018-11-20] MEDS ORDERED: LACTOBACILLUS RHAMNOSUS GG 1 CAPSULE. PO SCH (21:00)
== END 2018-11-20 14:37 | disposition short-term general hospital (02) | DRG 872 ==
LOC: ER 11:10 → 1 SOUTH 13:10 → ER 14:30
PROVIDERS: ADMIT Internal Medicine; ATTEND Internal Medicine
DX: A41.9 Sepsis, unspecified organism (principal); N39.0 Urinary tract infection, site not specified; E11.9 Type 2 diabetes mellitus without complications; E78.00 Pure hypercholesterolemia, unspecified; H90.5 Unspecified sensorineural hearing loss; I10 Essential (primary) hypertension; I48.91 Unspecified atrial fibrillation; M15.9 Polyosteoarthritis, unspecified; Z80.1 Family history of malignant neoplasm of trachea, bronchus and lung; Z82.0 Family history of epilepsy and other diseases of the nervous system; Z82.5 Family history of asthma and other chronic lower respiratory diseases; Z86.73 Personal history of transient ischemic attack (TIA), and cerebral infarction without residual deficits; Z95.0 Presence of cardiac pacemaker; Z90.710 Acquired absence of both cervix and uterus; Z98.41 Cataract extraction status, right eye; Z98.42 Cataract extraction status, left eye; Z88.8 Allergy status to other drugs, medicaments and biological substances; Z90.49 Acquired absence of other specified parts of digestive tract; Z90.721 Acquired absence of ovaries, unilateral
CPT/HCPCS: 36415; 70450; 71045; 73521; 80053; 81001; 82550; 82947; 83605; 83735; 83880; 84484; 85025; 85027; 87086; 93005; 96365; J0696; 99285-25; J7030